=== PATIENT | female | born 1965 | race Caucasian/White ===

== ENCOUNTER 2023-07-21 19:27 | Inpatient (IN) ==
[2023-07-21] MEDS ORDERED: SODIUM CHLORIDE 0.9% 500 ML IV ONE (19:45)
[2023-07-21 21:46] LABS: Appearance Urine Cloudy (Clear); Bacteria Urine Automated 4+ (Negative); Blood Urine 2+ (Negative); Color Urine Dark Yellow; Epithelial Cell Urine Auto 20-30 /lpf (0-5); Glucose Urine UA Negative (Negative); Ketones Urine 1+ (Negative); Leukocyte Esterase Urine 1+ (Negative); Nitrite Urine Negative (Negative); Protein Urine 1+ (Negative); RBC Urine Automated 0-4 /hpf (0-4); Specific Gravity Urine 1.021 (1.000-1.030); Urobilinogen Urine Negative (Negative); WBC Urine Automated >30 /hpf (0-5); pH Urine 5.5 (4.5-7.5)
[2023-07-21 21:48] LABS: Bilirubin Urine 1+ (Negative)
[2023-07-21 22:00] LABS: Albumin Globulin Ratio 1.5 (0.9-2); Albumin Level 4.6 gm/dl (3.4-5.0); Bilirubin,Total 1.3 mg/dl (0.2-1.0); Calcium 10.1 mg/dl (8.6-10.3); Creatinine Clr Calc Pharmacy 31.5 ml/min; Est GFR (African American) 41.4 ml/min; Est GFR (Non-African American) 35.7 ml/min; Globulin 3.1 gm/dl (2.5-4.0); Potassium 4.6 mmol/L (3.5-5.1); Total Protein 7.7 gm/dl (6.0-8.3)
[2023-07-21 22:16] LABS: Basophils # (auto) 0.07 K/uL (0.00-0.20); Basophils % (auto) 0.4 %; Eosinophils # (auto) 0.13 K/uL (0.00-0.50); Eosinophils % (auto) 0.8 %; Hematocrit (blood only) 50.1 % (37.0-47.0); Hemoglobin 17.2 g/dl (12.0-16.0); Immature Granulocytes # (auto) 0.09 K/uL (0.01-0.20); Immature Granulocytes % (auto) 0.6 %; Lymphocytes # (auto) 1.88 K/uL (1.20-3.40); Lymphocytes % (auto) 11.8 %; Mean Corpuscular Hgb Conc 34.3 g/dL (32.0-36.0); Mean Corpuscular Volume 90.4 fL (80.0-100.0); Mean Platelet Volume 9.4 fL (9.4-12.4); Monocytes % (auto) 8.2 %; Neutrophils # (auto) 12.42 K/uL (1.40-6.50); Neutrophils % (auto) 78.2 %; Platelet Count 408 K/uL (130-400); RDW Coefficient of Variation 13.5 % (11.5-14.5); RDW Standard Deviation 45.3 fL (36.4-46.3); Red Blood Count 5.54 M/uL (4.20-5.40); White Blood Count 15.89 K/ul (4.8-10.8)
[2023-07-21 22:33] LABS: Adenovirus PCR Not Detected (NotDetected); Bordetella parapertussis PCR Not Detected (NotDetected); Bordetella pertussis PCR Not Detected (NotDetected); Chlamydia pneumoniae PCR Not Detected (NotDetected); Coronavirus 229E PCR Not Detected (NotDetected); Coronavirus CoV-2 (COVID19)PCR Not Detected (NotDetected); Coronavirus HKU1 PCR Not Detected (NotDetected); Coronavirus NL63 PCR Not Detected (NotDetected); Coronavirus OC43PCR Not Detected (NotDetected); Human Metapneumovirus PCR Not Detected (NotDetected); Influenza A PCR Not Detected (NotDetected); Influenza B PCR Not Detected (NotDetected); Mycoplasma pneumoniae PCR Not Detected (NotDetected); Parainfluenza Virus 1 PCR Not Detected (NotDetected); Parainfluenza Virus 2 PCR Not Detected (NotDetected); Parainfluenza Virus 3 PCR Not Detected (NotDetected); Parainfluenza Virus 4 PCR Not Detected (NotDetected); Respiratory Syncytial VirusPCR Not Detected (NotDetected); Rhinovirus/Enterovirus PCR Not Detected (NotDetected)
[2023-07-21] MEDS ORDERED: SODIUM CHLORIDE 0.9% 1,000 ML IV SCH (23:45)
[2023-07-21] MEDS ORDERED: ACETAMINOPHEN 1,000 MG/100 ML VIAL IV STA (23:49)
--- NOTE | 2023-07-21 23:52 | Emergency Department Note ---
History of Present Illness General Chief complaint: Abdominal Pain Stated complaint: VOMIT, ABD PAIN Time Seen by Provider: 07/21/23 23:40 History of Present Illness Maximum Pain Intensity: 10 This is a 58-year-old female presenting to the emergency department for evaluation of nausea, vomiting, and abdominal pain for the past 2 days. She has not had any diarrhea. No fevers or chills. No recent travel. No known exposure to disease. She rates her discomfort a 10/10. She does not report any previous abdominal surgeries. Pain is primarily in the very low abdomen. No flank pain. Home Medications Medication Instructions Recorded Confirmed Type ibuprofen 200 mg tablet 600 mg PO Q6H PRN Fever Or Pain 02/12/20 07/22/23 History albuterol sulfate 90 mcg/actuation 2 inh inhalation Q4H PRN shortness 08/25/22 07/22/23 Rx aerosol inhaler of breath or wheezing #6.7 grams fluticasone fur. 100 mcg-umeclid 1 ea inhalation QAM 07/22/23 07/22/23 History 62.5 mcg-vilant 25 mcg inhalat.powder (Trelegy Ellipta) Allergies Allergy/AdvReac Type Severity Reaction Status Date / Time No Known Drug Allergies Allergy Unknown . Verified 07/22/23 01:56 Past Med/Surg History Medical History Tobacco use Surgical History No significant past surgical history Social History Smoking Status: Current every day smoker Tobacco Type: Cigarettes Second Hand Exposure: No; Do You Dip or Chew Tobacco: No; Hx Alcohol Use: No Hx Substance Use: No Preferred Language: Swazi Medical Detail Representative Required: No Beliefs That Will Affect Care: None Current Living Situation: Family current occupational status: employed current occupation: housekeeping at [employer] Other Information That Helps Us Care for You: No Feels Safe at Home: Yes Assistive Devices: Denture - Upper, Denture - Lower and Glasses Review of Systems A total of 10 systems reviewed and were otherwise negative Physical Exam Vital Signs Vital Signs - 24 hr 07/21/23 23:00 07/22/23 02:30 Pulse Rate [Finger] 78 81 Respiratory Rate 20 20 Blood Pressure [Right Arm] 122/59 L 105/65 Blood Pressure Mean [Right Arm] 80 78 Pulse Oximetry 98 97 Oxygen Delivery Method Room Air Room Air VITALS: Vitals are noted on the nurse's note and reviewed by myself. Vital signs stable. GENERAL: Well-developed, well-nourished, white female, who is in no acute distress and resting comfortably. Patient is cooperative with the examination. HEAD: Normocephalic atraumatic. MOUTH: Mucous membranes moist. Tonsils are not enlarged. Pharynx without erythema, blood, or exudate. Uvula midline. Airway patent. NECK: Supple without nuchal rigidity. No lymphadenopathy. No thyromegaly. Cervical spine is nontender. HEART: Regular rate and rhythm without murmurs gallops or rubs. LUNGS: Clear to auscultation bilaterally without wheezes, rales or rhonchi. No retractions or accessory muscle use. ABDOMEN: Positive normal bowel sounds x 4. Soft, nontender, without masses or organomegaly. No guarding or rebound tenderness. MUSCULOSKELETAL: No muscle atrophy, erythema, or edema noted. Full range of motion in all extremities. Course Administered Medications Fluticasone Furoate (Fluticasone Furoate 100mcg 14 Puffs/Inhaler) 1 puffs INH DAILY [facility] Stop: 08/21/23 08:59 Last Admin: 07/22/23 09:48 Dose: 1 puffs Documented By: ADDISON Piperacillin Sod/Tazobactam (Sod 4.5 gm/ Dextrose) 100 mls @ 25 mls/hr IV Q8H [facility]; Protocol Stop: 08/01/23 11:59 Last Admin: 07/22/23 21:08 Dose: 25 mls/hr Documented By: Infusion: 07/22/23 15:44 Dose: 0 mls/hr Documented By: Admin: 07/22/23 11:22 Dose: 25 mls/hr Documented By: ULYSSES Dextrose/Sodium Chloride (D5w And 1/2nss) 1,000 mls @ 80 mls/hr IV .[id number] [facility] Stop: 07/23/23 14:14 Last Admin: 07/22/23 21:08 Dose: 80 mls/hr Documented By: Infusion: 07/22/23 21:08 Dose: 80 mls/hr Documented By: Admin: 07/22/23 13:36 Dose: 80 mls/hr Documented By: ULYSSES Umeclidinium/Vilanterol (Umeclidinium/Vilanterol 62.5/25mcg 7 Puffs/Inhaler) 1 puffs INH DAILY [facility] Stop: 08/21/23 08:59 Last Admin: 07/22/23 09:48 Dose: 1 puffs Documented By: ADDISON Discontinued Medications Sodium Chloride (Nss) 500 mls @ 999 mls/hr IV .Q31M ONE Stop: 07/21/23 20:15 Last Infusion: 07/21/23 22:59 Dose: 0 mls/hr Documented By: Admin: 07/21/23 21:26 Dose: 999 mls/hr Documented By: LINSEY Sodium Chloride (Nss) 1,000 mls @ 999 mls/hr IV .Q1H1M [facility] Stop: 07/22/23 00:45 Last Infusion: 07/22/23 01:05 Dose: 0 mls/hr Documented By: Admin: 07/21/23 23:53 Dose: 999 mls/hr Documented By: ALEIDA Acetaminophen (Ofirmev) 1,000 mg in 100 mls @ 400 mls/hr IV NOW STA Stop: 07/22/23 00:03 Last Infusion: 07/22/23 00:11 Dose: 0 mls/hr Documented By: Admin: 07/21/23 23:54 Dose: 400 mls/hr Documented By: ALEIDA Piperacillin Sod/Tazobactam Sod (Zosyn) 4.5 gm in 100 mls @ 200 mls/hr IV ONE STA; Protocol Stop: 07/22/23 05:52 Last Infusion: 07/22/23 06:13 Dose: 0 mls/hr Documented By: Admin: 07/22/23 05:39 Dose: 200 mls/hr Documented By: ALEIDA Dextrose/Sodium Chloride (D5w And Nss) 1,000 mls @ 50 mls/hr IV .Q20H [facility] Stop: 08/21/23 06:51 Last Infusion: 07/22/23 13:15 Dose: 0 mls/hr Documented By: Admin: 07/22/23 09:01 Dose: 125 mls/hr Documented By: DONNA Magnesium Sulfate/Dextrose (Magnesium Sulfate / D5w) 1 gm in 100 mls @ 50 mls/hr IV Q2H [facility] Stop: 07/22/23 17:14 Last Infusion: 07/22/23 20:41 Dose: 0 mls/hr Documented By: Admin: 07/22/23 16:45 Dose: 50 mls/hr Documented By: Infusion: 07/22/23 16:45 Dose: 50 mls/hr Documented By: Admin: 07/22/23 16:40 Dose: 50 mls/hr Documented By: MARGA Ioversol (Optiray 320 100ml) 100 ml IV ONCE ONE Stop: 07/22/23 00:20 Last Admin: 07/22/23 00:19 Dose: 93 ml Documented By: SKYLAR Propofol (Propofol Iv Emulsion 10 Mg/Ml 20 Ml Vial) 200 mg IV NOW STA Stop: 07/22/23 05:37 Last Admin: 07/22/23 06:10 Dose: 75 mg Documented By: NIKO Co-signed By: ALEIDA Medical Decision Making Differential Diagnosis Differential diagnosis: Etiologies such as biliary colic, cholecystitis, hepatitis, pancreatitis, cardiac disease, pancreatitis, gastritis, peptic ulcer disease, appendicitis, cystitis, diverticulitis, mesenteric ischemia, inflammatory bowel disease, ileus, bowel obstruction, testicular/adnexal torsion, aortic pathology, shingles, as well as others were considered Laboratory Data 07/21/23 21:17 07/21/23 21:17 Lab Results 07/21/23 07/21/23 07/21/23 Range/Units 21:07 21:07 21:07 WBC (4.8-10.8) K/ul RBC (4.20-5.40) M/uL Hgb (12.0-16.0) g/dl Hct (37.0-47.0) % MCV (80.0-100.0) fL MCH (25.0-34.0) pg MCHC (32.0-36.0) g/dL RDW Std Deviation (36.4-46.3) fL RDW Coeff of Oren (11.5-14.5) % Plt Count (130-400) K/uL MPV (9.4-12.4) fL Immature Gran % (Auto) % Neut % (Auto) % Lymph % (Auto) % [place] % (Auto) % Eos % (Auto) % Baso % (Auto) % Neut # (Auto) (1.40-6.50) K/uL Lymph # (Auto) (1.20-3.40) K/uL [place]os # (Auto) (0.11-0.59) K/uL Eos # (Auto) (0.00-0.50) K/uL Baso # (Auto) (0.00-0.20) K/uL Immature Gran # (Auto) (0.01-0.20) K/uL Sodium (136-145) mmol/L Potassium (3.5-5.1) mmol/L Chloride (98-107) mmol/L Carbon Dioxide (21-32) mmol/L Anion Gap (3-11) BUN (6-23) mg/dl Creatinine (0.6-1.2) mg/dl Est Cr Clr Drug Dosing ml/min Est GFR ( Amer) ml/min Est GFR (Non-Af Amer) ml/min BUN/Creatinine Ratio (10-20) Glucose (70-99(Fasting)) mg/dl Calcium (8.6-10.3) mg/dl Total Bilirubin (0.2-1.0) mg/dl AST (13-39) U/L ALT (7-52) U/L Alkaline Phosphatase (34-104) U/L Total Protein (6.0-8.3) gm/dl Albumin (3.4-5.0) gm/dl Globulin (2.5-4.0) gm/dl Albumin/Globulin Ratio (0.9-2) Urine Color Dark Yellow Urine Appearance Cloudy A (Clear) Urine pH 5.5 (4.5-7.5) Ur Specific [place] 1.021 (1.000-1.030) Urine Protein 1+ H (Negative) Urine Glucose (UA) Negative (Negative) Urine Ketones 1+ H (Negative) Urine Blood 2+ H (Negative) Urine Nitrite Negative (Negative) Urine Bilirubin 1+ H (Negative) Urine Urobilinogen Negative (Negative) Ur Leukocyte Esterase 1+ H (Negative) Urine WBC (Auto) >30 H (0-5) /hpf Urine RBC (Auto) 0-4 (0-4) /hpf U Hyaline Cast (Auto) 10-30 H (0-5) /lpf U Epithel Cells (Auto) 20-30 H (0-5) /lpf Urine Bacteria (Auto) 4+ H (Negative) Urine Opiates Screen Neg (Neg) Ur Methadone, Qual Neg (Neg) Urine Barbiturates Neg (Neg) Ur Phencyclidine (PCP) Neg (Neg) U Amphetamin/Meth Scrn Neg (Neg) MDMA (Ecstasy) Screen Neg (Neg) U Benzodiazepines Scrn Neg (Neg) Ur Cocaine Metabolite Neg (Neg) U Marijuana (THC) Screen Neg (Neg) Adenovirus (PCR) (NotDetected) B. pertussis DNA (PCR) (NotDetected) B.parapertussis DNA PCR (NotDetected) C. pneumoniae DNA (PCR) (NotDetected) Coronavirus OC43 (PCR) (NotDetected) Coronavirus HKU1 (PCR) (NotDetected) Coronavirus 229E (PCR) (NotDetected) SARS-CoV-2 (PCR) Cancelled Coronavirus NL63 (PCR) (NotDetected) Human Metapneumovir PCR (NotDetected) Influenza Type A (PCR) Cancelled Influenza Type B (PCR) Cancelled M. pneumoniae (PCR) (NotDetected) Parainfluenza 1 (PCR) (NotDetected) Parainfluenza 2 (PCR) (NotDetected) Parainfluenza 3 (PCR) (NotDetected) Parainfluenza 4 (PCR) (NotDetected) RSV (RT-PCR) Cancelled RSV (PCR) (NotDetected) Entero/Rhino (PCR) (NotDetected) 07/21/23 07/21/23 07/21/23 Range/Units 21:17 21:: WBC 15.89 H (4.8-10.8) K/ul RBC 5.54 H (4.20-5.40) M/uL Hgb 17.2 H (12.0-16.0) g/dl Hct 50.1 H (37.0-47.0) % MCV 90.4 (80.0-100.0) fL MCH 31.0 (25.0-34.0) pg MCHC 34.3 (32.0-36.0) g/dL RDW Std Deviation 45.3 (36.4-46.3) fL RDW Coeff of Oren 13.5 (11.5-14.5) % Plt Count 408 H (130-400) K/uL MPV 9.4 (9.4-12.4) fL Immature Gran % (Auto) 0.6 % Neut % (Auto) 78.2 % Lymph % (Auto) 11.8 % Coos % (Auto) 8.2 % Eos % (Auto) 0.8 % Baso % (Auto) 0.4 % Neut # (Auto) 12.42 H (1.40-6.50) K/uL Lymph # (Auto) 1.88 (1.20-3.40) K/uL [place] # (Auto) 1.30 H (0.11-0.59) K/uL Eos # (Auto) 0.13 (0.00-0.50) K/uL Baso # (Auto) 0.07 (0.00-0.20) K/uL Immature Gran # (Auto) 0.09 (0.01-0.20) K/uL Sodium 135 L (136-145) mmol/L Potassium 4.6 (3.5-5.1) mmol/L Chloride 101 (98-107) mmol/L Carbon Dioxide 25 (21-32) mmol/L Anion Gap 9 (3-11) BUN 33 H (6-23) mg/dl Creatinine 1.57 H (0.6-1.2) mg/dl Est Cr Clr Drug Dosing 31.5 ml/min Est GFR ( Amer) 41.4 ml/min Est GFR (Non-Af Amer) 35.7 ml/min BUN/Creatinine Ratio 21.0 H (10-20) Glucose 106 H (70-99(Fasting)) mg/dl Calcium 10.1 (8.6-10.3) mg/dl Total Bilirubin 1.3 H (0.2-1.0) mg/dl AST 18 (13-39) U/L ALT 12 (7-52) U/L Alkaline Phosphatase 70 (34-104) U/L Total Protein 7.7 (6.0-8.3) gm/dl Albumin 4.6 (3.4-5.0) gm/dl Globulin 3.1 (2.5-4.0) gm/dl Albumin/Globulin Ratio 1.5 (0.9-2) Urine Color Urine Appearance (Clear) Urine pH (4.5-7.5) Ur Specific [place] (1.000-1.030) Urine Protein (Negative) Urine Glucose (UA) (Negative) Urine Ketones (Negative) Urine Blood (Negative) Urine Nitrite (Negative) Urine Bilirubin (Negative) Urine Urobilinogen (Negative) Ur Leukocyte Esterase (Negative) Urine WBC (Auto) (0-5) /hpf Urine RBC (Auto) (0-4) /hpf U Hyaline Cast (Auto) (0-5) /lpf U Epithel Cells (Auto) (0-5) /lpf Urine Bacteria (Auto) (Negative) Urine Opiates Screen (Neg) Ur Methadone, Qual (Neg) Urine Barbiturates (Neg) Ur Phencyclidine (PCP) (Neg) U Amphetamin/Meth Scrn (Neg) MDMA (Ecstasy) Screen (Neg) U Benzodiazepines Scrn (Neg) Ur Cocaine Metabolite (Neg) U Marijuana (THC) Screen (Neg) Adenovirus (PCR) Not Detected (NotDetected) B. pertussis DNA (PCR) Not Detected (NotDetected) B.parapertussis DNA PCR Not Detected (NotDetected) C. pneumoniae DNA (PCR) Not Detected (NotDetected) Coronavirus OC43 (PCR) Not Detected (NotDetected) Coronavirus HKU1 (PCR) Not Detected (NotDetected) Coronavirus 229E (PCR) Not Detected (NotDetected) SARS-CoV-2 (PCR) Not Detected Coronavirus NL63 (PCR) Not Detected (NotDetected) Human Metapneumovir PCR Not Detected (NotDetected) Influenza Type A (PCR) Not Detected Influenza Type B (PCR) Not Detected M. pneumoniae (PCR) Not Detected (NotDetected) Parainfluenza 1 (PCR) Not Detected (NotDetected) Parainfluenza 2 (PCR) Not Detected (NotDetected) Parainfluenza 3 (PCR) Not Detected (NotDetected) Parainfluenza 4 (PCR) Not Detected (NotDetected) RSV (RT-PCR) RSV (PCR) Not Detected (NotDetected) Entero/Rhino (PCR) Not Detected (NotDetected) Imaging Data Radiologist's Impression: Abdomen/Pelvis CT 07/21/23 23:49 Exam(s): CT ABDOMEN + PELVIS With Contrast IV Amt: 90 ml optiray 320 EXAM: CT Abdomen and Pelvis With Intravenous Contrast CLINICAL HISTORY: Reason for exam: low abd pain, n/v. TECHNIQUE: Axial computed tomography images of the abdomen and pelvis with intravenous contrast. CTDI is 8.53 mGy and DLP is 381.96 mGy-cm. Automated exposure control was utilized for the study. A dose lowering technique was utilized adhering to the principles of ALARA. CONTRAST: Patient received 90 ml optiray 320 of IV contrast COMPARISON: CT abdomen/pelvis on 02/12/2020 FINDINGS: Lung bases: Mild bibasilar atelectasis. Mediastinum: Small hiatal hernia. ABDOMEN: Liver: Hepatomegaly. Gallbladder and bile ducts: Unremarkable. No calcified stones. No ductal dilation. Pancreas: Unremarkable. No mass. No ductal dilation. Spleen: Unremarkable. No splenomegaly. Adrenals: Unremarkable. No mass. Kidneys and ureters: Unremarkable. No hydronephrosis or obstructing stone. Stomach and bowel: Dilated fluid and gas-filled small bowel loops, compatible with small bowel obstruction secondary to the herniated small bowel within the right inguinal hernia. Small right inguinal hernia containing obstructed small bowel. Evaluation of the stomach is limited by underdistention. Diverticulosis without definite evidence of diverticulitis. Under distention of the descending colon and sigmoid colon limits evaluation. PELVIS: Appendix: Normal appendix. Bladder: Underdistended bladder limits evaluation. Reproductive: Retroverted uterus. ABDOMEN and PELVIS: Intraperitoneal space: Small amount of ascites. No free air. Bones/joints: No acute fracture. No dislocation. Soft tissues: See above. Vasculature: Atherosclerotic changes of the vasculature. No aortic aneurysm or dissection. Phleboliths in the pelvis. Lymph nodes: Unremarkable. No enlarged lymph nodes. IMPRESSION: 1. Dilated fluid and gas-filled small bowel loops, compatible with small bowel obstruction secondary to the herniated small bowel within the right inguinal hernia. 2. Small amount of ascites. Electronically signed by: Karson Rosas M.D. 07/22/23 03:57 AM MDM Narrative Physical exam and history were performed. Nursing notes, EMR, and Medication List were personally reviewed. No social concerns were identified as barriers to patients care. Patient appears to have abdominal pain bringing her to the ER. She is having vomiting with this. Patient was seen during a period of very high ER volume and acuity with extended wait times. Nursing protocol order have been performed and some of these are available for my review at the time of patient encounter. Patient's blood work is as above and was reviewed. She does have an elevated wh ite count of 15,000. She does not have significant anemia or gross electrolyte imbalance. Transaminases are not diagnostic. CT scan of the abdomen and pelvis was reviewed by myself and radiology. CT scan was concerning as it shows a small bowel obstruction likely to a right inguinal hernia. I did attempt to reduce this at bedside, but was not able to do so. I did reach out to the hospitalist team as well as the on-call surgeon. General surgery did evaluate the patient at bedside here in the ER, and with the assistance of my attending, Dr. Brown, they were able to consciously sedate the patient and reduce the hernia at bedside. Overall the patient does not appear well for discharge home and will need continued monitoring. Please see the hospitalist and surgical team dictations for further patient course, plan, and disposition. The chart was completed utilizing [employer] Speech Voice Recognition Software. Grammatical errors, random word insertions, pronoun errors, and incomplete sentences are an occasional consequence of this system due to software limitations, ambient noise, and hardware issues. Any formal questions or concerns about the content, text, or information contained within the body of this dictation should be directly addressed to the provider for clarification. . Impression & Plan Incarcerated right inguinal hernia, SBO (small bowel obstruction) Discharge Plan Visit Data Chief Complaint: Abdominal Pain Stated Complaint: VOMIT, ABD PAIN ED Provider: Laurel Brown ED Midlevel Provider: Ilya Nelson Discharge Problem: Incarcerated right inguinal hernia, SBO (small bowel obstruction) Patient Disposition: Admitted As Inpatient Discharge Instructions Interventions: ED Discharge Assessment Last Done: 07/22/23 06:53
[2023-07-22] MEDS ORDERED: OPTIRAY 320 100ml IV ONE (00:19)
[2023-07-22 00:25] LABS: Amphetamines+Metham, Urine Neg (Neg); Barbiturates, Urine Neg (Neg); Benzodiazepine, Urine Neg (Neg); Cocaine, Urine Neg (Neg); MDMA (Ecstacy), Urine Neg (Neg); Methadone, Urine Neg (Neg); Opiate, Urine Neg (Neg); Phencyclidine, Urine Neg (Neg)
--- NOTE | 2023-07-22 03:57 | CT Scan Report ---
Exam(s): CT ABDOMEN + PELVIS With Contrast IV Amt: 90 ml optiray 320 EXAM: CT Abdomen and Pelvis With Intravenous Contrast CLINICAL HISTORY: Reason for exam: low abd pain, n/v. TECHNIQUE: Axial computed tomography images of the abdomen and pelvis with intravenous contrast. CTDI is 8.53 mGy and DLP is 381.96 mGy-cm. Automated exposure control was utilized for the study. A dose lowering technique was utilized adhering to the principles of ALARA. CONTRAST: Patient received 90 ml optiray 320 of IV contrast COMPARISON: CT abdomen/pelvis on 02/12/2020 FINDINGS: Lung bases: Mild bibasilar atelectasis. Mediastinum: Small hiatal hernia. ABDOMEN: Liver: Hepatomegaly. Gallbladder and bile ducts: Unremarkable. No calcified stones. No ductal dilation. Pancreas: Unremarkable. No mass. No ductal dilation. Spleen: Unremarkable. No splenomegaly. Adrenals: Unremarkable. No mass. Kidneys and ureters: Unremarkable. No hydronephrosis or obstructing stone. Stomach and bowel: Dilated fluid and gas-filled small bowel loops, compatible with small bowel obstruction secondary to the herniated small bowel within the right inguinal hernia. Small right inguinal hernia containing obstructed small bowel. Evaluation of the stomach is limited by underdistention. Diverticulosis without definite evidence of diverticulitis. Under distention of the descending colon and sigmoid colon limits evaluation. PELVIS: Appendix: Normal appendix. Bladder: Underdistended bladder limits evaluation. Reproductive: Retroverted uterus. ABDOMEN and PELVIS: Intraperitoneal space: Small amount of ascites. No free air. Bones/joints: No acute fracture. No dislocation. Soft tissues: See above. Vasculature: Atherosclerotic changes of the vasculature. No aortic aneurysm or dissection. Phleboliths in the pelvis. Lymph nodes: Unremarkable. No enlarged lymph nodes. IMPRESSION: 1. Dilated fluid and gas-filled small bowel loops, compatible with small bowel obstruction secondary to the herniated small bowel within the right inguinal hernia. 2. Small amount of ascites. Electronically signed by: Karson Rosas M.D. 07/22/23 03:57 AM
[2023-07-22] MEDS ORDERED: MoRPHine SULFATE 4 MG/ML 1 ML CARP\\VIAL IV PRN (04:47)
[2023-07-22] MEDS ORDERED: PIPERACILLIN/TAZOBACTAM 4.5 GM/100 ML BAG IV STA (05:23)
--- NOTE | 2023-07-22 05:32 | History & Physical Report ---
Date of Service July 22, 2023 Assessment & Plan (1) SBO (small bowel obstruction): Plan: 58-year-old female with past medical significant for giant bullous emphysema, COPD, history of pneumonia, cholesteatoma of right ear s/p mastoidectomy, ongoing tobacco abuse, mixed conductive and sensorineural hearing loss of both ears presents with abdominal pain for last 2 days and found to have SBO. Small bowel obstruction CT scan showing:Dilated fluid and gas-filled small bowel loops, compatible with small bowel obstruction secondary to the herniated small bowel within the right inguinal hernia. ER tried to reduce the hernia but was difficult Notified surgery. Surgery is going to try to reduce hernia under conscious sedation ,and was successful N.p.o. IV fluids IV pain meds as needed To monitor for 24hrs to make sure that bowel reduced is viable as per surgery Son wants to be notified if any surgery needed. Close monitor UTI Started on Zosyn We will follow cultures CAIO. Creatinine 1.5 Getting fluids Avoid nephrotoxic agents Follow repeat labs Leukocytosis Seems chronic Possibly from smoking Elevated hemoglobin Possibly dehydration Follow repeat labs COPD Continue home inhalers Currently seems stable Tobacco abuse Needs counseling DVT prophylax SCDs for now Disposition medical floor Full code History of Present Illness Chief Complaint: Abdominal pain Primary Care Provider: Jordan Garcia DO 58-year-old female with past medical significant for giant bullous emphysema, COPD, history of pneumonia, cholesteatoma of right ear s/p mastoidectomy, ongoing tobacco abuse, mixed conductive and sensorineural hearing loss of both ears presents with abdominal pain for last 2 days. Having abdominal last 2 days with associated nausea and vomiting. Last bowel movement was couple of days ago. Micturating okay. Denies any fevers. Has cough but she says she smokes. Denies chest pain or shortness of breath. No headaches. No runny nose or sore throat. Currently hemodynamically stable. Somewhat hard of hearing. Past medical history. As mentioned above. Past surgical history. Tympanoplasty mastoidectomy without ossicular reconstruction. Social history. . Smokes half pack a day for last 40 years. No alcohol use. No drug use. Family history. Mother had breast cancer. Allergies Allergy/AdvReac Type Severity Reaction Status Date / Time No Known Drug Allergies Allergy Unknown . Verified 07/22/23 01:56 Home Medications Medication Instructions Recorded Confirmed Type ibuprofen 200 mg tablet 600 mg PO Q6H PRN Fever Or Pain 02/12/20 07/22/23 History albuterol sulfate 90 mcg/actuation 2 inh inhalation Q4H PRN shortness 08/25/22 07/22/23 Rx aerosol inhaler of breath or wheezing #6.7 grams fluticasone fur. 100 mcg-umeclid 1 ea inhalation QAM 07/22/23 07/22/23 History 62.5 mcg-vilant 25 mcg inhalat.powder (Trelegy Ellipta) Past Med/Surg History Medical History Tobacco use Surgical History No significant past surgical history Social History Smoking Status: Current every day smoker Preferred Language: Serbian current occupational status: employed current occupation: housekeeping at [employer] Feels Safe at Home: Yes Review of Systems Review of Systems: All systems reviewed & are unremarkable except as noted in HPI & below Physical Exam Physical Exam: General-Not in distress Head- atraumatic Eyes- PERRL. ENT- oropharynx clear Neck- supple, no JVD. Lungs- clear to auscultation , no wheezing or crackles. Heart- regular rhythm; no murmur, no gallop. Abdomen- sluggish bowel sounds, soft, diffuse tender , mild distension Extremities- no pretibial edema, no erythema seen Neuro- alert, oriented x 3; PERRL no facial palsy; no dysarthria; obeys simple commands Skin- warm & dry Results & Data Results & Data Vital Signs (Past 12 Hours) Vital Signs Temp Pulse Pulse Resp BP BP Pulse Ox 07/22/23 02:30 81 20 105/65 97 07/21/23 23:00 78 20 122/59 L 98 07/21/23 19:41 37 C 129 H 20 102/72 96 O2 Del Method 07/22/23 02:30 Room Air 07/21/23 23:00 Room Air 07/21/23 19:41 Room Air Diagnostic Findings Laboratory Results - last 24 hr Laboratory Results WBC 15.89 K/ul (4.8-10.8) H 07/21/23 21:17 RBC 5.54 M/uL (4.20-5.40) H 07/21/23 21:17 Hgb 17.2 g/dl (12.0-16.0) H 07/21/23 21:17 Hct 50.1 % (37.0-47.0) H 07/21/23 21:17 MCV 90.4 fL (80.0-100.0) 07/21/23 21:17 MCH 31.0 pg (25.0-34.0) 07/21/23 21:17 MCHC 34.3 g/dL (32.0-36.0) 07/21/23 21:17 RDW Std Deviation 45.3 fL (36.4-46.3) 07/21/23 21:17 RDW Coeff of Oren 13.5 % (11.5-14.5) 07/21/23 21:17 Plt Count 408 K/uL (130-400) H 07/21/23 21:17 MPV 9.4 fL (9.4-12.4) 07/21/23 21:17 Immature Gran % (Auto) 0.6 % 07/21/23 21:17 Neut % (Auto) 78.2 % 07/21/23 21:17 Lymph % (Auto) 11.8 % 07/21/23 21:17 [place] % (Auto) 8.2 % 07/21/23 21:17 Eos % (Auto) 0.8 % 07/21/23 21:17 Baso % (Auto) 0.4 % 07/21/23:17 Neut # (Auto) 12.42 K/uL (1.40-6.50) H 07/21/23 21:17 Lymph # (Auto) 1.88 K/uL (1.20-3.40) 07/21/23 21:17 [place] # (Auto) 1.30 K/uL (0.11-0.59) H 07/21/23 21:17 Eos # (Auto) 0.13 K/uL (0.00-0.50) 07/21/23 21:17 Baso # (Auto) 0.07 K/uL (0.00-0.20) 07/21/23 21:17 Immature Gran # (Auto) 0.09 K/uL (0.01-0.20) 07/21/23 21:17 Sodium 135 mmol/L (136-145) L 07/21/23 21:17 Potassium 4.6 mmol/L (3.5-5.1) 07/21/23 21:17 Chloride 101 mmol/L (98-107) 07/21/23 21:17 Carbon Dioxide 25 mmol/L (21-32) 07/21/23 21:17 Anion Gap 9 (3-11) 07/21/23 21:17 BUN 33 mg/dl (6-23) H 07/21/23 21:17 Creatinine 1.57 mg/dl (0.6-1.2) H 07/21/23 21:17 Est Cr Clr Drug Dosing 31.5 ml/min 07/21/23 21:17 Est GFR ( Amer) 41.4 ml/min 07/21/23 21: Est GFR (Non-Af Amer) 35.7 ml/min 07/21/23 21: BUN/Creatinine Ratio 21.0 (10-20) H 07/21/23 21:17 Glucose 106 mg/dl (70-99(Fasting)) H 07/21/23 21:17 Calcium 10.1 mg/dl (8.6-10.3) 07/21/23 21: Total Bilirubin 1.3 mg/dl (0.2-1.0) H 07/21/23 21:17 AST 18 U/L (13-39) 07/21/23 21:17 ALT 12 U/L (7-52) 07/21/23 21:17 Alkaline Phosphatase 70 U/L (34-104) 07/21/23 21:17 Total Protein 7.7 gm/dl (6.0-8.3) 07/21/23 21: Albumin 4.6 gm/dl (3.4-5.0) 07/21/23 21: Globulin 3.1 gm/dl (2.5-4.0) 07/21/23 21: Albumin/Globulin Ratio 1.5 (0.9-2) 07/21/23 21:17 Urine Color Dark Yellow 07/21/23 21:07 Urine Appearance Cloudy (Clear) A 07/21/23 21:07 Urine pH 5.5 (4.5-7.5) 07/21/23 21: Ur Specific [place] 1.021 (1.000-1.030) 07/21/23 21:07 Urine Protein 1+ (Negative) H 07/21/23 21:07 Urine Glucose (UA) Negative (Negative) 07/21/23 21:07 Urine Ketones 1+ (Negative) H 07/21/23 21:07 Urine Blood 2+ (Negative) H 07/21/23 21:07 Urine Nitrite Negative (Negative) 07/21/23 21:07 Urine Bilirubin 1+ (Negative) H 07/21/23 21:07 Urine Urobilinogen Negative (Negative) 07/21/23 21:07 Ur Leukocyte Esterase 1+ (Negative) H 07/21/23 21:07 Urine WBC (Auto) >30 /hpf (0-5) H 07/21/23 21:07 Urine RBC (Auto) 0-4 /hpf (0-4) 07/21/23 21:07 U Hyaline Cast (Auto) 10-30 /lpf (0-5) H 07/21/23 21:07 U Epithel Cells (Auto) 20-30 /lpf (0-5) H 07/21/23 21:07 Urine Bacteria (Auto) 4+ (Negative) H 07/21/23 21:07 Urine Opiates Screen Neg (Neg) 07/21/23 21:07 Ur Methadone, Qual Neg (Neg) 07/21/23 21:07 Urine Barbiturates Neg (Neg) 07/21/23 21:07 Ur Phencyclidine (PCP) Neg (Neg) 07/21/23 21:07 U Amphetamin/Meth Scrn Neg (Neg) 07/21/23 21:07 MDMA (Ecstasy) Screen Neg (Neg) 07/21/23 21:07 U Benzodiazepines Scrn Neg (Neg) 07/21/23 21:07 Ur Cocaine Metabolite Neg (Neg) 07/21/23 21:07 U Marijuana (THC) Screen Neg (Neg) 07/21/23 21:07 Adenovirus (PCR) Not Detected (NotDetected) 07/21/23 21:23 B. pertussis DNA (PCR) Not Detected (NotDetected) 07/21/23 21:23 B.parapertussis DNA PCR Not Detected (NotDetected) 07/21/23 21:23 C. pneumoniae DNA (PCR) Not Detected (NotDetected) 07/21/23 21:23 Coronavirus OC43 (PCR) Not Detected (NotDetected) 07/21/23 21:23 Coronavirus HKU1 (PCR) Not Detected (NotDetected) 07/21/23 21:23 Coronavirus 229E (PCR) Not Detected (NotDetected) 07/21/23 21:23 SARS-CoV-2 (PCR) Not Detected (NotDetected) 07/21/23 21:23 Coronavirus NL63 (PCR) Not Detected (NotDetected) 07/21/23 21:23 Human Metapneumovir PCR Not Detected (NotDetected) 07/21/23 21:23 Influenza Type A (PCR) Not Detected (NotDetected) 07/21/23 21:23 Influenza Type B (PCR) Not Detected (NotDetected) 07/21/23 21:23 M. pneumoniae (PCR) Not Detected (NotDetected) 07/21/23 21:23 Parainfluenza 1 (PCR) Not Detected (NotDetected) 07/21/23 21:23 Parainfluenza 2 (PCR) Not Detected (NotDetected) 07/21/23 21:23 Parainfluenza 3 (PCR) Not Detected (NotDetected) 07/21/23 21:23 Parainfluenza 4 (PCR) Not Detected (NotDetected) 07/21/23 21:23 RSV (RT-PCR) Cancelled 07/21/23 21:07 RSV (PCR) Not Detected (NotDetected) 07/21/23 21:23 Entero/Rhino (PCR) Not Detected (NotDetected) 07/21/23 21:23 Impressions Abdomen/Pelvis CT 07/21/23 23:49 Exam(s): CT ABDOMEN + PELVIS With Contrast IV Amt: 90 ml optiray 320 EXAM: CT Abdomen and Pelvis With Intravenous Contrast CLINICAL HISTORY: Reason for exam: low abd pain, n/v. TECHNIQUE: Axial computed tomography images of the abdomen and pelvis with intravenous contrast. CTDI is 8.53 mGy and DLP is 381.96 mGy-cm. Automated exposure control was utilized for the study. A dose lowering technique was utilized adhering to the principles of ALARA. CONTRAST: Patient received 90 ml optiray 320 of IV contrast COMPARISON: CT abdomen/pelvis on 02/12/2020 FINDINGS: Lung bases: Mild bibasilar atelectasis. Mediastinum: Small hiatal hernia. ABDOMEN: Liver: Hepatomegaly. Gallbladder and bile ducts: Unremarkable. No calcified stones. No ductal dilation. Pancreas: Unremarkable. No mass. No ductal dilation. Spleen: Unremarkable. No splenomegaly. Adrenals: Unremarkable. No mass. Kidneys and ureters: Unremarkable. No hydronephrosis or obstructing stone. Stomach and bowel: Dilated fluid and gas-filled small bowel loops, compatible with small bowel obstruction secondary to the herniated small bowel within the right inguinal hernia. Small right inguinal hernia containing obstructed small bowel. Evaluation of the stomach is limited by underdistention. Diverticulosis without definite evidence of diverticulitis. Under distention of the descending colon and sigmoid colon limits evaluation. PELVIS: Appendix: Normal appendix. Bladder: Underdistended bladder limits evaluation. Reproductive: Retroverted uterus. ABDOMEN and PELVIS: Intraperitoneal space: Small amount of ascites. No free air. Bones/joints: No acute fracture. No dislocation. Soft tissues: See above. Vasculature: Atherosclerotic changes of the vasculature. No aortic aneurysm or dissection. Phleboliths in the pelvis. Lymph nodes: Unremarkable. No enlarged lymph nodes. IMPRESSION: 1. Dilated fluid and gas-filled small bowel loops, compatible with small bowel obstruction secondary to the herniated small bowel within the right inguinal hernia. 2. Small amount of ascites. Electronically signed by: Karson Rosas M.D. 07/22/23 03:57 AM ECG Additional Comments: ECG sinus tach at a rate of 105. Bilateral enlargement. Pulmonary disease pattern. Code Status & VTE Plan VTE Prophylaxis Plan VTE Prophylaxis will be ordered: Yes
[2023-07-22] MEDS ORDERED: PROPOFOL IV EMULSION 10 MG/ML 20 ML VIAL IV STA (05:36)
[2023-07-22] MEDS ORDERED: SODIUM CHLORIDE 0.9% 500 ML IV SCH (05:45)
[2023-07-22] MEDS ORDERED: HYDROmorphone INJ 0.5 MG/0.5 ML SYR IV PRN (06:52)
[2023-07-22] MEDS ORDERED: ALBUTEROL HFA 8 GM INHALER INH PRN (06:52)
[2023-07-22] MEDS ORDERED: ONDANSETRON INJ 2 MG/ML 2 ML VIAL IV PRN (06:52)
[2023-07-22] MEDS ORDERED: D5W AND NSS 1,000 ML IV SCH (06:52)
--- NOTE | 2023-07-22 06:56 | Emergency Department Note ---
Pre Sedation Assessment Vital Signs Temp Pulse Pulse Resp BP BP Pulse Ox 07/22/23 02:30 81 20 105/65 97 07/21/23 23:00 78 20 122/59 L 98 07/21/23 19:41 37 C 129 H 20 102/72 96 O2 Del Method 07/22/23 02:30 Room Air 07/21/23 23:00 Room Air 07/21/23 19:41 Room Air Cardiovascular RRR, no murmur, no edema Respiratory normal respiratory effort, lungs clear to auscultation Pre-Sedation Airway Assessment Smoking Status: Current every day smoker Hx Sleep Apnea: No Short, Thick Neck: No Thyromental Distance: > or= 3.5 Finger Breadths Oral Cavity: + Dentures Mallampati Class: I ASA: ASA2 NPO Status Date of Last Intake of Fluids: 07/21/23 Time of Last Intake of Fluids: 18:30 Date of Last Intake of Solid Food: 07/19/23 Procedure Planning Contraindications for Sedation: none Current Medications Reviewed: Yes Notes The planned sedation has been discussed with the patient. Informed Consent was obtained. I have identified the patient, determined the appropriateness of sedation and have assessed the patient immediately prior to the procedure. All medicine(s) and interventions are by my order.
--- NOTE | 2023-07-22 06:57 | Emergency Department Note ---
ED Visit Note Procedural Sedation Indication right inguinal hernia Total time: [id number] Written consent was obtained after the risks and benefits were explained to the patient, including, but not limited to aspiration, allergic reaction, breathing difficulties, cardiac complications, vomiting, pain, event recall, bleeding, and/or infection. Pre-sedation examination and paperwork completed. The patient was on 100% oxygen via NRB prior to the procedure. Continuos end tidal CO2 monitoring, pulse oximetry, and cardiac monitoring were utilized. Suction, airway equipment, medications, respiratory equipment, and appropriate personnel were prepared prior to the initiation of the procedure. A time out was taken. Sedation was achieved utilizing a total of 75 mg of propofol. After I observed the patient had reached the appropriate level of sedation the main procedure was performed without complication. Sedation was discontinued and the monitoring continued. The patient recovered quickly from the effects of the medication without complication or adverse event. .
--- NOTE | 2023-07-22 06:58 | Surgery Consultation ---
Date of Consultation July 22, 2023 Assessment & Plan (1) SBO (small bowel obstruction): (2) Incarcerated right inguinal hernia: Plan 58-year-old woman with a incarcerated right inguinal hernia causing a small bowel obstruction. I discussion with her about this finding. In conjunction with the ER physician, I was able to reduce the right inguinal hernia under conscious sedation in the emergency department. After the reduction, she was feeling somewhat better. She will be admitted to the medicine service for observation. We will continue to follow. History of Present Illness Reason for Consultation: SBO with [facility] Requesting Physician: MD Keerthi Attending Physician: Jorge Luis Roberts MD History of Present Illness 58-year-old woman presents with a 3-day history of nausea, vomiting, abdominal pain. She has had fevers and chills as well. She has never had an abdominal operation. She does have COPD and is a 1 pack/day smoker. She has diffuse abdominal pain but also significant pain in the right groin. CT scan demonstrates a small bowel obstruction due to a loop of bowel stuck in a right inguinal hernia. Allergies Allergy/AdvReac Type Severity Reaction Status Date / Time No Known Drug Allergies Allergy Unknown . Verified 07/22/23 01:56 Home Medications Medication Instructions Recorded Confirmed Type ibuprofen 200 mg tablet 600 mg PO Q6H PRN Fever Or Pain 02/12/20 07/22/23 History albuterol sulfate 90 mcg/actuation 2 inh inhalation Q4H PRN shortness 08/25/22 07/22/23 Rx aerosol inhaler of breath or wheezing #6.7 grams fluticasone fur. 100 mcg-umeclid 1 ea inhalation QAM 07/22/23 07/22/23 History 62.5 mcg-vilant 25 mcg inhalat.powder (Trelegy Ellipta) Patient History Medical History Tobacco use Surgical History No significant past surgical history Social History Smoking Status: Current every day smoker Preferred Language: Kyrgyz current occupational status: employed current occupation: housekeeping at [employer] Feels Safe at Home: Yes Review of Systems Review of Systems: All systems reviewed & are unremarkable except as noted in HPI & below Physical Exam Constitutional: WD/WN, vitals as above Eyes: PERRL, conjunctivae normal, anicteric sclerae Neck: trachea midline, no thyromegaly Respiratory: normal respiratory effort; no respiratory distress and no labored breathing Cardiovascular: Rate/Rhythm: regular rate and regular rhythm Gastrointestinal (Abdomen): Inspection/Auscultation: abdomen normal to inspection and + abdomen distended Percussion/Palpation: + abdomen tender (Diffusely), abdomen soft and + hernia (Firm mass in right inguinal hernia, tenderness to palpation); no guarding and abdomen not rigid Skin: no rashes, warm and dry Psychiatric: A+Ox3, euthymic affect Results & Data Vital Signs (Past 12 Hours) Vital Signs Temp Pulse Pulse Resp BP BP Pulse Ox 07/22/23 06:40 65 14 133/74 98 07/22/23 06:35 69 15 134/75 99 07/22/23 06:30 68 16 135/78 100 07/22/23 06:25 67 16 130/76 99 07/22/23 06:20 73 14 130/75 98 07/22/23 06:15 70 16 109/70 97 07/22/23 06:10 82 19 100/64 97 07/22/23 06:08 76 19 98/70 L 97 07/22/23 06:07 80 16 102/67 97 07/22/23 06:05 67 15 105/67 97 07/22/23 06:00 68 20 109/70 97 07/22/23 02:30 81 20 105/65 97 07/21/23 23:00 78 20 122/59 L 98 07/21/23 19:41 37 C 129 H 20 102/72 96 O2 Del Method 07/22/23 06:40 Room Air 07/22/23 06:35 Room Air 07/22/23 06:30 Room Air 07/22/23 06:25 Room Air 07/22/23 06:20 Room Air 07/22/23 06:15 Room Air 07/22/23 06:10 Room Air 07/22/23 06:08 Room Air 07/22/23 06:07 Room Air 07/22/23 06:05 Room Air 07/22/23 06:00 Room Air 07/22/23 02:30 Room Air 07/21/23 23:00 Room Air 07/21/23 19:41 Room Air Laboratory Results 07/21/23 07/21/23 07/21/23 Range/Units 21:23 21:17 21:17 WBC 15.89 H (4.8-10.8) K/ul RBC 5.54 H (4.20-5.40) M/uL Hgb 17.2 H (12.0-16.0) g/dl Hct 50.1 H (37.0-47.0) % MCV 90.4 (80.0-100.0) fL MCH 31.0 (25.0-34.0) pg MCHC 34.3 (32.0-36.0) g/dL RDW Std Deviation 45.3 (36.4-46.3) fL RDW Coeff of Oren 13.5 (11.5-14.5) % Plt Count 408 H (130-400) K/uL MPV 9.4 (9.4-12.4) fL Immature Gran % (Auto) 0.6 % Neut % (Auto) 78.2 % Lymph % (Auto) 11.8 % Hooker % (Auto) 8.2 % Eos % (Auto) 0.8 % Baso % (Auto) 0.4 % Neut # (Auto) 12.42 H (1.40-6.50) K/uL Lymph # (Auto) 1.88 (1.20-3.40) K/uL Hooker # (Auto) 1.30 H (0.11-0.59) K/uL Eos # (Auto) 0.13 (0.00-0.50) K/uL Baso # (Auto) 0.07 (0.00-0.20) K/uL Immature Gran # (Auto) 0.09 (0.01-0.20) K/uL Sodium 135 L (136-145) mmol/L Potassium 4.6 (3.5-5.1) mmol/L Chloride 101 (98-107) mmol/L Carbon Dioxide 25 (21-32) mmol/L Anion Gap 9 (3-11) BUN 33 H (6-23) mg/dl Creatinine 1.57 H (0.6-1.2) mg/dl Est Cr Clr Drug Dosing 31.5 ml/min Est GFR ( Amer) 41.4 ml/min Est GFR (Non-Af Amer) 35.7 ml/min BUN/Creatinine Ratio 21.0 H (10-20) Glucose 106 H (70-99(Fasting)) mg/dl Calcium 10.1 (8.6-10.3) mg/dl Total Bilirubin 1.3 H (0.2-1.0) mg/dl AST 18 (13-39) U/L ALT 12 (7-52) U/L Alkaline Phosphatase 70 (34-104) U/L Total Protein 7.7 (6.0-8.3) gm/dl Albumin 4.6 (3.4-5.0) gm/dl Globulin 3.1 (2.5-4.0) gm/dl Albumin/Globulin Ratio 1.5 (0.9-2) Urine Color Urine Appearance (Clear) Urine pH (4.5-7.5) Ur Specific [place] (1.000-1.030) Urine Protein (Negative) Urine Glucose (UA) (Negative) Urine Ketones (Negative) Urine Blood (Negative) Urine Nitrite (Negative) Urine Bilirubin (Negative) Urine Urobilinogen (Negative) Ur Leukocyte Esterase (Negative) Urine WBC (Auto) (0-5) /hpf Urine RBC (Auto) (0-4) /hpf U Hyaline Cast (Auto) (0-5) /lpf U Epithel Cells (Auto) (0-5) /lpf Urine Bacteria (Auto) (Negative) Urine Opiates Screen (Neg) Ur Methadone, Qual (Neg) Urine Barbiturates (Neg) Ur Phencyclidine (PCP) (Neg) U Amphetamin/Meth Scrn (Neg) MDMA (Ecstasy) Screen (Neg) U Benzodiazepines Scrn (Neg) Ur Cocaine Metabolite (Neg) U Marijuana (THC) Screen (Neg) Adenovirus (PCR) Not Detected (NotDetected) B. pertussis DNA (PCR) Not Detected (NotDetected) B.parapertussis DNA PCR Not Detected (NotDetected) C. pneumoniae DNA (PCR) Not Detected (NotDetected) Coronavirus OC43 (PCR) Not Detected (NotDetected) Coronavirus HKU1 (PCR) Not Detected (NotDetected) Coronavirus 229E (PCR) Not Detected (NotDetected) SARS-CoV-2 (PCR) Not Detected Coronavirus NL63 (PCR) Not Detected (NotDetected) Human Metapneumovir PCR Not Detected (NotDetected) Influenza Type A (PCR) Not Detected Influenza Type B (PCR) Not Detected M. pneumoniae (PCR) Not Detected (NotDetected) Parainfluenza 1 (PCR) Not Detected (NotDetected) Parainfluenza 2 (PCR) Not Detected (NotDetected) Parainfluenza 3 (PCR) Not Detected (NotDetected) Parainfluenza 4 (PCR) Not Detected (NotDetected) RSV (RT-PCR) RSV (PCR) Not Detected (NotDetected) Entero/Rhino (PCR) Not Detected (NotDetected) 07/21/23 07/21/23 07/21/23 Range/Units 21:07 21:07 21:07 WBC (4.8-10.8) K/ul RBC (4.20-5.40) M/uL Hgb (12.0-16.0) g/dl Hct (37.0-47.0) % MCV (80.0-100.0) fL MCH (25.0-34.0) pg MCHC (32.0-36.0) g/dL RDW Std Deviation (36.4-46.3) fL RDW Coeff of Oren (11.5-14.5) % Plt Count (130-400) K/uL MPV (9.4-12.4) fL Immature Gran % (Auto) % Neut % (Auto) % Lymph % (Auto) % Hooker % (Auto) % Eos % (Auto) % Baso % (Auto) % Neut # (Auto) (1.40-6.50) K/uL Lymph # (Auto) (1.20-3.40) K/uL Hooker # (Auto) (0.11-0.59) K/uL Eos # (Auto) (0.00-0.50) K/uL Baso # (Auto) (0.00-0.20) K/uL Immature Gran # (Auto) (0.01-0.20) K/uL Sodium (136-145) mmol/L Potassium (3.5-5.1) mmol/L Chloride (98-107) mmol/L Carbon Dioxide (21-32) mmol/L Anion Gap (3-11) BUN (6-23) mg/dl Creatinine (0.6-1.2) mg/dl Est Cr Clr Drug Dosing ml/min Est GFR ( Amer) ml/min Est GFR (Non-Af Amer) ml/min BUN/Creatinine Ratio (10-20) Glucose (70-99(Fasting)) mg/dl Calcium (8.6-10.3) mg/dl Total Bilirubin (0.2-1.0) mg/dl AST (13-39) U/L ALT (7-52) U/L Alkaline Phosphatase (34-104) U/L Total Protein (6.0-8.3) gm/dl Albumin (3.4-5.0) gm/dl Globulin (2.5-4.0) gm/dl Albumin/Globulin Ratio (0.9-2) Urine Color Dark Yellow Urine Appearance Cloudy A (Clear) Urine pH 5.5 (4.5-7.5) Ur Specific [place] 1.021 (1.000-1.030) Urine Protein 1+ H (Negative) Urine Glucose (UA) Negative (Negative) Urine Ketones 1+ H (Negative) Urine Blood 2+ H (Negative) Urine Nitrite Negative (Negative) Urine Bilirubin 1+ H (Negative) Urine Urobilinogen Negative (Negative) Ur Leukocyte Esterase 1+ H (Negative) Urine WBC (Auto) >30 H (0-5) /hpf Urine RBC (Auto) 0-4 (0-4) /hpf U Hyaline Cast (Auto) 10-30 H (0-5) /lpf U Epithel Cells (Auto) 20-30 H (0-5) /lpf Urine Bacteria (Auto) 4+ H (Negative) Urine Opiates Screen Neg (Neg) Ur Methadone, Qual Neg (Neg) Urine Barbiturates Neg (Neg) Ur Phencyclidine (PCP) Neg (Neg) U Amphetamin/Meth Scrn Neg (Neg) MDMA (Ecstasy) Screen Neg (Neg) U Benzodiazepines Scrn Neg (Neg) Ur Cocaine Metabolite Neg (Neg) U Marijuana (THC) Screen Neg (Neg) Adenovirus (PCR) (NotDetected) B. pertussis DNA (PCR) (NotDetected) B.parapertussis DNA PCR (NotDetected) C. pneumoniae DNA (PCR) (NotDetected) Coronavirus OC43 (PCR) (NotDetected) Coronavirus HKU1 (PCR) (NotDetected) Coronavirus 229E (PCR) (NotDetected) SARS-CoV-2 (PCR) Cancelled Coronavirus NL63 (PCR) (NotDetected) Human Metapneumovir PCR (NotDetected) Influenza Type A (PCR) Cancelled Influenza Type B (PCR) Cancelled M. pneumoniae (PCR) (NotDetected) Parainfluenza 1 (PCR) (NotDetected) Parainfluenza 2 (PCR) (NotDetected) Parainfluenza 3 (PCR) (NotDetected) Parainfluenza 4 (PCR) (NotDetected) RSV (RT-PCR) Cancelled RSV (PCR) (NotDetected) Entero/Rhino (PCR) (NotDetected) Diagnostic Findings Exam(s): CT ABDOMEN + PELVIS With Contrast IV Amt: 90 ml optiray 320 EXAM: CT Abdomen and Pelvis With Intravenous Contrast CLINICAL HISTORY: Reason for exam: low abd pain, n/v. TECHNIQUE: Axial computed tomography images of the abdomen and pelvis with intravenous contrast. CTDI is 8.53 mGy and DLP is 381.96 mGy-cm. Automated exposure control was utilized for the study. A dose lowering technique was utilized adhering to the principles of ALARA. CONTRAST: Patient received 90 ml optiray 320 of IV contrast COMPARISON: CT abdomen/pelvis on 02/12/2020 FINDINGS: Lung bases: Mild bibasilar atelectasis. Mediastinum: Small hiatal hernia. ABDOMEN: Liver: Hepatomegaly. Gallbladder and bile ducts: Unremarkable. No calcified stones. No ductal dilation. Pancreas: Unremarkable. No mass. No ductal dilation. Spleen: Unremarkable. No splenomegaly. Adrenals: Unremarkable. No mass. Kidneys and ureters: Unremarkable. No hydronephrosis or obstructing stone. Stomach and bowel: Dilated fluid and gas-filled small bowel loops, compatible with small bowel obstruction secondary to the herniated small bowel within the right inguinal hernia. Small right inguinal hernia containing obstructed small bowel. Evaluation of the stomach is limited by underdistention. Diverticulosis without definite evidence of diverticulitis. Under distention of the descending colon and sigmoid colon limits evaluation. PELVIS: Appendix: Normal appendix. Bladder: Underdistended bladder limits evaluation. Reproductive: Retroverted uterus. ABDOMEN and PELVIS: Intraperitoneal space: Small amount of ascites. No free air. Bones/joints: No acute fracture. No dislocation. Soft tissues: See above. Vasculature: Atherosclerotic changes of the vasculature. No aortic aneurysm or dissection. Phleboliths in the pelvis. Lymph nodes: Unremarkable. No enlarged lymph nodes. IMPRESSION: 1. Dilated fluid and gas-filled small bowel loops, compatible with small bowel obstruction secondary to the herniated small bowel within the right inguinal hernia. 2. Small amount of ascites.
--- NOTE | 2023-07-22 06:59 | Emergency Department Note ---
Post Sedation Assessment Vital Signs Temp Pulse Pulse Resp BP BP Pulse Ox 07/22/23 02:30 81 20 105/65 97 07/21/23 23:00 78 20 122/59 L 98 07/21/23 19:41 37 C 129 H 20 102/72 96 O2 Del Method 07/22/23 02:30 Room Air 07/21/23 23:00 Room Air 07/21/23 19:41 Room Air Recovery Score Activity: Moves 4 extremities Respiration: Deep Breath/Cough Circulation: +/-20% PreAnes Value Consciousness: Fully Awake Oxygen Saturation: > 92% On Room Air Post Anesthesia Score: 10 Discharge Sedation Level of Care: Fast Track Phase II Unexpected Event: None Post Sedation Plan On clinical assessment, the patient appears to have tolerated the sedation without complications. Patient is recovering as anticipated. Patient will continue to be monitored by nursing and may be discharged when sedation discharge criteria are met per below protocol. Upon Completions of procedure up to 15 minutes continue every 5 minute vital signs and the P.A.R. score; then discharge to a Phase I or Fast Track to Phase II per the following guidelines: * Discharge Patient to appropriate Phase II area if PAR is 8 or greater or return to pre- procedure baseline. The post - procedure orders will be as directed. * If PAR score is less than 8 or not return to pre-procedure baseline then patient will follow Phase I monitoring till PAR is reached for Phase II. The Phase I may be done in procedure room or may call to secure a Phase I area. * If naloxone or flumazenil are used for reversal, hold in Phase I for continued monitoring from when last reversal dose was given for a minimum of 60 minutes or longer pending the nurse and/or physician discretion of patient condition before discharge to Phase II. Please call the Sedation Physician to re-evaluate and complete post-note for discharge to Phase II area. Do NOT discharge from procedure sedation or Phase 1 until post- sedation evaluation note is complete by procedure /sedation MD Sedation Discharge Instructions to be given to the patient at discharge to home. Sedation Data Sedation Times Sedation Start Date: 07/22/23 Sedation Start Time: 06:03 Sedation End Date: 07/22/23 Sedation End Time: 06:10 Total Sedation Time: 7 Procedure Times Procedure Start Time:: 06:07 Procedure End Time: 06:08
[2023-07-22] MEDS ORDERED: SODIUM CHLORIDE 0.9% 1,000 ML IV SCH (07:00)
[2023-07-22 07:46] LABS: Basophils # (auto) 0.07 K/uL (0.00-0.20); Basophils % (auto) 0.7 %; Eosinophils # (auto) 0.31 K/uL (0.00-0.50); Eosinophils % (auto) 2.9 %; Hemoglobin 13.3 g/dl (12.0-16.0); Immature Granulocytes # (auto) 0.03 K/uL (0.01-0.20); Immature Granulocytes % (auto) 0.3 %; Lymphocytes # (auto) 1.91 K/uL (1.20-3.40); Lymphocytes % (auto) 18.1 %; Mean Corpuscular Hemoglobin 31.1 pg (25.0-34.0); Mean Corpuscular Hgb Conc 34.1 g/dL (32.0-36.0); Mean Corpuscular Volume 91.3 fL (80.0-100.0); Monocytes # (auto) 1.16 K/uL (0.11-0.59); Neutrophils # (auto) 7.07 K/uL (1.40-6.50); Platelet Count 278 K/uL (130-400); RDW Coefficient of Variation 13.5 % (11.5-14.5); RDW Standard Deviation 45.1 fL (36.4-46.3); Red Blood Count 4.27 M/uL (4.20-5.40); White Blood Count 10.55 K/ul (4.8-10.8)
[2023-07-22 07:58] LABS: BUN Creatinine Ratio 30.3 (10-20); Calcium 7.1 mg/dl (8.6-10.3); Est GFR (African American) 72.3 ml/min; Est GFR (Non-African American) 62.4 ml/min; Magnesium 1.5 mg/dl (1.7-2.4); Potassium 3.8 mmol/L (3.5-5.1)
[2023-07-22] MEDS ORDERED: NON-FORMULARY MEDICATION (Fluticasone-Umeclidin-Vilanter [Trelegy Ellipta] 100-62.5-25 mcg INH SCH (09:00)
[2023-07-22] MEDS: UMECLIDINIUM/VILANTEROL 62.5/25MCG 7 PUFFS/INHALER INH SCH (09:48)
[2023-07-22] MEDS: FLUTICASONE FUROATE 100MCG 14 PUFFS/INHALER INH SCH (09:48)
[2023-07-22] MEDS: PIPERACILLIN/TAZOBACTAM 4.5 GM in DEXTROSE 5% MINI-B 100 ML IV SCH ×2 (11:22→21:08)
--- NOTE | 2023-07-22 13:16 | Hospitalist Progress Note ---
Date of Service July 22, 2023 Assessment & Plan (1) SBO (small bowel obstruction): Plan: 58-year-old female with past medical significant for giant bullous emphysema, COPD, history of pneumonia, cholesteatoma of right ear s/p mastoidectomy, ongoing tobacco abuse, mixed conductive and sensorineural hearing loss of both ears presents with abdominal pain for last 2 days [employer] a/w decreased PO intake/N and V. She was found to have SBO at ED. She is being managed for the following: Small bowel obstruction Admitting CT scan showing:Dilated fluid and gas-filled small bowel loops, compatible with small bowel obstruction secondary to the herniated small bowel within the right inguinal hernia. Surgery consulted, who reduced hernia Patient reports improvement in her belly pain, denies further nausea and vomiting. N.p.o. status, advance diet when cleared per surgery. IV fluid changed to half NS and D5W. Manage pain and nausea. Monitor and replete electrolytes. UTI: Follow culture, Started on Zosyn, continue for now. CAIO.: Admitting Creatinine 1.5, status post IV fluid, resolved. Leukocytosis: Seems chronic. Possibly from smoking Elevated hemoglobin: Possibly dehydration. Follow repeat labs -improved COPD: Continue home inhalers. Currently seems stable Tobacco abuse: Needs counseling DVT prophylaxis: SCDs for now Disposition: DC With clearance from surgery. Full code Admission and Anticipated Discharge Date Admission Date: July 22, 2023 Subjective Patient was seen and examined at bedside. Patient was lying in bed, on room air, resting comfortably, not in any acute distress. Patient reports improvement in her belly pain, improvement in her nausea and vomiting. Patient reports feeling better, denies headache or dizziness or chest pain or sore throat or cough. Patient reports improving frequency/burning while passing urine. Physical Exam Physical Exam: GENERAL: Alert and oriented x3. NAD, on RA. Appears older than stated age. HEENT: No pallor, no icterus. Pupils equal, round and reactive to light. Oral mucosa moist. NECK: No JVD, no neck masses. HEART: S1 and S2 heard. Regular rate and rhythm. No murmur, no gallop. RESPIRATORY SYSTEM: Normal AP diameter. No accessory muscle use. No wheezing, no crackles. ABDOMEN: Soft, bowel sounds present, nontender, no distention. CENTRAL NERVOUS SYSTEM: No facial droop. Speech is clear. Obeys simple commands. Moves extremities. EXTREMITIES: No edema, no erythema seen. Results & Data Results & Data Vital Signs (Past 12 Hours) Vital Signs Temp Pulse Pulse Resp BP BP Pulse Ox 07/22/23 10:40 66 18 104/66 94 07/22/23 08:14 36.4 C L 70 20 104/65 99 07/22/23 07:01 70 07/22/23 06:55 71 07/22/23 06:40 65 14 133/74 98 07/22/23 06:35 69 15 134/75 99 07/22/23 06:30 68 16 135/78 100 07/22/23 06:25 67 16 130/76 99 07/22/23 06:20 73 14 130/75 98 07/22/23 06:15 70 16 109/70 97 07/22/23 06:10 82 19 100/64 97 07/22/23 06:08 76 19 98/70 L 97 07/22/23 06:07 80 16 102/67 97 07/22/23 06:05 67 15 105/67 97 07/22/23 06:00 68 20 109/70 97 07/22/23 02:30 81 20 105/65 97 O2 Del Method 07/22/23 10:40 Room Air 07/22/23 08:14 Room Air 07/22/23 07:01 07/22/23 06:55 07/22/23 06:40 Room Air 07/22/23 06:35 Room Air 07/22/23 06:30 Room Air 07/22/23 06:25 Room Air 07/22/23 06:20 Room Air 07/22/23 06:15 Room Air 07/22/23 06:10 Room Air 07/22/23 06:08 Room Air 07/22/23 06:07 Room Air 07/22/23 06:05 Room Air 07/22/23 06:00 Room Air 07/22/23 02:30 Room Air
[2023-07-22] MEDS: D5W AND 1/2NSS 1,000 ML IV SCH ×2 (13:36→21:08)
--- NOTE | 2023-07-22 14:17 | Electrocardiogram Report ---
Test Reason : Blood Pressure : / mmHG Vent. Rate : 105 BPM Atrial Rate : 105 BPM P-R Int : 128 ms QRS Dur : 070 ms QT Int : 344 ms P-R-T Axes : 083 097 085 degrees QTc Int : 454 ms Sinus tachycardia Biatrial enlargement Rightward axis Pulmonary disease pattern Abnormal ECG No previous ECGs available Confirmed by Delfino Durham [id number]) on 07/22/2023 2:16:59 PM Referred By: REFERRED SELF Confirmed By:Delfino Durham
--- NOTE | 2023-07-22 15:01 | Communication Note ---
Date of Service: July 22, 2023 Patient evaluated at 2:30 pm. Feeling much better, no abdominal pain just soreness down in right groin no n,v having liquid bowel movements hungry, wants something to eat Abdomen soft, nondistended, nontender, bowel sounds in all 4 quadrants no right inguinal hernia on palpation Okay for clear liquids, advance as tolerated. If tolerates advanced diet , okay to discharge from surgical standpoint. Educated patient on recurrence of hernia with signs of obstruction and to prevent to emergency room if so for further evaluation. Avoid heavy lif ting/straining and constipation. Can follow-up with Dr. Ayala as outpatient to discuss elective hernia repair. Discussed with Dr. Ayala who agrees with above.
[2023-07-22] MEDS: MAGNESIUM SULFATE / D5W 1 GM/100 ML BAG IV SCH ×2 (16:40→16:45)
[2023-07-23] MEDS: PIPERACILLIN/TAZOBACTAM 4.5 GM in DEXTROSE 5% MINI-B 100 ML IV SCH (05:04)
[2023-07-23 07:50] LABS: Hematocrit (blood only) 37.1 % (37.0-47.0); Hemoglobin 12.9 g/dl (12.0-16.0); Mean Corpuscular Hemoglobin 31.2 pg (25.0-34.0); Mean Corpuscular Hgb Conc 34.8 g/dL (32.0-36.0); Mean Corpuscular Volume 89.6 fL (80.0-100.0); Mean Platelet Volume 9.2 fL (9.4-12.4); Platelet Count 285 K/uL (130-400); RDW Coefficient of Variation 13.3 % (11.5-14.5); Red Blood Count 4.14 M/uL (4.20-5.40); White Blood Count 7.89 K/ul (4.8-10.8)
[2023-07-23 08:09] LABS: BUN Creatinine Ratio 12.5 (10-20); Calcium 7.7 mg/dl (8.6-10.3); Creatinine Clr Calc Pharmacy 61.9 ml/min; Est GFR (African American) 93.5 ml/min; Est GFR (Non-African American) 80.7 ml/min; Phosphorus 2.1 mg/dl (2.5-4.9); Potassium 3.7 mmol/L (3.5-5.1)
[2023-07-23] MEDS: FLUTICASONE FUROATE 100MCG 14 PUFFS/INHALER INH SCH (08:43)
[2023-07-23] MEDS: UMECLIDINIUM/VILANTEROL 62.5/25MCG 7 PUFFS/INHALER INH SCH (08:43)
[2023-07-23] MEDS ORDERED: CIPROFLOXACIN 500 MG TAB PO SCH (12:00)
--- NOTE | 2023-07-23 12:15 | Discharge Summary ---
Date of Service July 23, 2023 Admission HPI Per Admitting Provider 58-year-old female with past medical significant for giant bullous emphysema, COPD, history of pneumonia, cholesteatoma of right ear s/p mastoidectomy, ongoing tobacco abuse, mixed conductive and sensorineural hearing loss of both ears presents with abdominal pain for last 2 days. Having abdominal last 2 days with associated nausea and vomiting. Last bowel movement was couple of days ago. Micturating okay. Denies any fevers. Has cough but she says she smokes. Denies chest pain or shortness of breath. No headaches. No runny nose or sore throat. Currently hemodynamically stable. Somewhat hard of hearing. Past medical history. As mentioned above. Past surgical history. Tympanoplasty mastoidectomy without ossicular reconstruction. Social history. . Smokes half pack a day for last 40 years. No alcohol use. No drug use. Family history. Mother had breast cancer. Admission Exam Per Admitting Provider General-Not in distress Head- atraumatic Eyes- PERRL. ENT- oropharynx clear Neck- supple, no JVD. Lungs- clear to auscultation , no wheezing or crackles. Heart- regular rhythm; no murmur, no gallop. Abdomen- sluggish bowel sounds, soft, diffuse tender , mild distension Extremities- no pretibial edema, no erythema seen Neuro- alert, oriented x 3; PERRL no facial palsy; no dysarthria; obeys simple commands Skin- warm & dry Principal Diagnosis Small bowel obstruction secondary to incarcerated inguinal hernia x right UTI Acute kidney injury Discharge Exam GENERAL: Alert and oriented x3. NAD, on RA. HEENT: No pallor, no icterus. Pupils equal, round and reactive to light. Oral mucosa moist. NECK: No JVD, no neck masses. HEART: S1 and S2 heard. Regular rate and rhythm. No murmur, no gallop. RESPIRATORY SYSTEM: Normal AP diameter. No accessory muscle use. No wheezing, no crackles. ABDOMEN: Soft, bowel sounds present, nontender, no distention. CENTRAL NERVOUS SYSTEM: No facial droop. Speech is clear. Obeys simple commands. Moves extremities. EXTREMITIES: No edema, no erythema seen. Discharge Data Allergies Allergy/AdvReac Type Severity Reaction Status Date / Time No Known Drug Allergies Allergy Unknown . Verified 07/22/23 01:56 Consultations 07/22/23 04:48 ED Decision to Admit Stat 07/22/23 06:52 Consult General Surgery Routine Ordered Studies 07/21/23 23:49 CT abd pelvis IV con only Stat Hospital Course (1) SBO (small bowel obstruction): 58-year-old female with past medical significant for giant bullous emphysema, COPD, history of pneumonia, cholesteatoma of right ear s/p mastoidectomy, ongoing tobacco abuse, mixed conductive and sensorineural hearing loss of both ears presents with abdominal pain for last 2 days HIGH [employer]IFT [employer]IVER a/w decreased PO intake/N and V. She was found to have SBO at ED. She was managed for the following: Small bowel obstruction Admitting CT scan showing:Dilated fluid and gas-filled small bowel loops, compatible with small bowel obstruction secondary to the herniated small bowel within the right inguinal hernia. Surgery consulted, who reduced hernia Patient reports improvement in her belly pain, denies further nausea and vomiting. Tolerated advancement of diet well, discussed with surgery, okay to discharge from the point of view.. Patient hemodynamically stable, reports significant improvement in her belly pain. UTI: Zosyn to ciprofloxacin on discharge to complete the course. Probiotics added. CAIO.: Admitting Creatinine 1.5, status post IV fluid, resolved. Leukocytosis: Seems chronic. Possibly from smoking Elevated hemoglobin: Possibly dehydration. Follow repeat labs -improved COPD: Continue home inhalers. Currently seems stable Tobacco abuse: Patient declines nicotine patch, states she has not thought about smoking cessation. DVT prophylaxis: SCDs for now Full code Patient is being discharged home with following instruction at the point of discharge: Follow-up with your primary care physician within a week time and likely you will need labs CBC/CMP/magnesium/phosphorus. Establish and follow-up with general surgeon upon discharge. You will be discharged on antibiotic for your UTI to complete the course. Probiotics will be added. Take your medications as prescribed. Please make sure that you are able to get your medications today by calling your pharmacy before you leave the hospital so that your treatment continuity is not broken. [facility] Attestation I certify that this patient is under my care and that I, or a physicians client account assistant working with me, had a face to-face encounter that meets the formerly [facility] [id number] encounter requirements with this patient. The encounter with the patient was in whole, or in part, for the following medical condition, which is the primary reason for home health care (list medical condition): I certify that, based on my findings, the following services are medically necessary home health services: My clinical findings support the need for the above services because: Further, I certify that my clinical findings support that this patient is homebound (i.e. absences from home require considerable and taxing effort and are for medical reasons or catholic services or infrequently or of short duration when for other reasons) because: Certification for Home Health Services: Based on the above findings, I certify that this patient is confined to the home and needs intermittent nursing home care, physical therapy and/or speech therapy or continues to need occupational therapy. The patient is under my care, and I have initiated the establishment of the plan of care. This patient will be followed by a physician who will periodically review the plan of care. Total Time Total Time Spent Total Time Spent (In Minutes): 40 Discharge Plan Discharge Items Patient Disposition: Home - Self-Care Reason For Visit: SBO Discharge Diagnosis: Small bowel obstruction secondary to incarcerated inguinal hernia x right UTI Acute kidney injury Activity: Resume your previous activity Non-emergency contact: Primary Care Provider Call non-emergency contact if: you have any medication questions, your symptoms worsen and your temperature is above 101 Follow-up/Referrals: Pedro Ayala MD [Physician] - Elly Denton CRNP [Outside Practitioners] - (Date & Time 07/27/2023 10:00 AM Provider MAGGIE Bronson Department [facility] ) Diet: Low Fat Diet Texture: Dental soft (bite-sized) Addtl Attending Provider Instructions: Follow-up with your primary care physician within a week time and likely you will need labs CBC/CMP/magnesium/phosphorus. Establish and follow-up with general surgeon upon discharge. You will be discharged on antibiotic for your UTI to complete the course. Probiotics will be added. Take your medications as prescribed. Please make sure that you are able to get your medications today by calling your pharmacy before you leave the hospital so that your treatment continuity is not broken. Addtl Retort Condenser Attendant Provider Instructions: You had a small bowel obstruction secondary to a right inguinal hernia contain ing a loop of your small bowel. This was able to be reduced without need for surgery. You should avoid heavy lifting/straining to avoid obstruction of hernia. If you notice a bulge in the right groin, lay down try to relax and push it back in. You need to seek emergency evaluation if you develop pain, inability to pas gas or have nausea and vomiting and a lump in the groin as you may have a recurrent hernia that is obstructed. You can follow-up with Dr. ayala in general surgery as outpatient to discuss elective hernia repair. Pending Studies at Discharge: No Stand-Alone Forms: My [facility] [employer], Smoking Cessation Medications and DC Order Prescriptions: New ciprofloxacin HCl 500 mg Tablet 500 mg PO BID 6 Days Qty: 12 0RF Advanced Probiotic 625 mg (10 billion cell) Capsule 2 cap PO DAILY 7 Days Qty: 14 0RF Continued ibuprofen 200 mg Tablet 600 mg PO Q6H PRN (Reason: Fever Or Pain) Trelegy Ellipta 100-62.5-25 mcg blister with device 1 ea INHALATION QAM albuterol sulfate 90 mcg/actuation HFA aerosol inhaler 2 inh inhalation Q4H PRN (Reason: shortness of breath or wheezing) Qty: 6.7 1RF Discharge Orders: Discharge Order (Routine); Ordered 07/23/23 Ordered By: Jorge Luis Roberts Admission Data Admit Date/Time: 07/22/23 05:19 Attending Provider: Jorge Luis Roberts Admit Provider: Manoj Pendleton Primary Care Provider: Jordan Garcia Other Providers: Manjo Pendleton ; Pedro Ayala
[2023-07-23] MEDS ORDERED: POT PHOSPHATE MONOBASIC W/ SOD TAB PO SCH (13:00)
[2023-07-24] MEDS ORDERED: ADVANCED PROBIOTIC 1250 MG CAPSULE PO SCH (09:00)
== END 2023-07-23 14:16 | disposition home or self-care (01) | DRG 394 ==
LOC: ED 19:27 → EDINP 07-22 05:19 → 3N 07-22 06:53
DX: N39.0 Urinary tract infection, site not specified; K40.30 Unilateral inguinal hernia, with obstruction, without gangrene, not specified as recurrent; H90.6 Mixed conductive and sensorineural hearing loss, bilateral; J43.9 Emphysema, unspecified; F17.210 Nicotine dependence, cigarettes, uncomplicated; N17.9 Acute kidney failure, unspecified; E86.0 Dehydration

== ENCOUNTER 2023-09-27 23:33 | Inpatient (IN) ==
--- OUTSIDE RECORDS SUMMARY | 2023-09-27 23:37 | External Medical Summary | Summary of Care ---
Author Name Unknown Organization [facility] Address [address] [address] Phone [phone] Care Team Providers Care Nuclear Physicist Name Role Phone Yvette Dong Primary Care Provider Reason for Visit * Reason Onset Date Comments Advice 07/27/2023 Encounter Details Date Type Department Care Team (Late st Contact Info) Description 07/27/2023 Telephone Family Practice [facility] [address] [place] [address] Yvette Dong CRNP [address] [place] [address] Advice Allergies No known active allergiesdocumented as of this encounter (statuses as of 07/30/2023) Medications Medication Sig Dispensed Refills Start Date End Date Status Ventolin HFA 108 (90 Base) MCG/ACT Inhalation Aerosol SolutionIndications :Pneumonia due to infectious organism, unspecified laterality, unspecified part of lung Inhale 2 Puffs by mouth every 4 hours as needed for Wheezing. 18 g 3 10/07/2022 Active guaiFENesin ER 600 MG Oral Tablet Extended Release 12 Hour (Mucinex)Indication s:Pneumonia due to infectious organism, unspecified laterality, unspecified part of lung Take 1 Tablet by mouth 2 times a day as needed for Congestion. Take with plenty of water. Do not cut, crush or chew 40 Tablet 2 10/07/2022 Active Additional Information Patient not taking.Reported on 06/24/2023 Sujata Adamson 100-62.5-25 MCG/ACT Aerosol Powder Breath Activated Inhale 1 Puff by mouth once. 0 06/12/2023 Active Ciprofloxacin HCl 500 MG Oral Tablet (Cipro)Indications: Urinary tract infection without hematuria, site unspecified Take 1 Tablet by mouth in the morning and 1 Tablet before bedtime. For 6 days. 0 07/23/2023 Active Advanced Probiotic Oral Capsule TAKE 2 CAPSULES BY MOUTH DAILY X1 WEEK 0 07/23/2023 Active Hospital, Clinic, or Other Facility Administered Medication Ordered Dose Route Frequency Start Date End Date Status Albuterol Sulfate (Proventil) (2.5 MG/3ML) 0.083% inhalation solution 2.5 mgIndications:COPD, severity to be determined (HCC) 2.5 mg NEBULIZER ONCE PRN 10/07/2022 10/07/2023 Active documented as of this encounter (statuses as of 07/30/2023) Active Problems Problem Noted Date Diagnosed Date Diverticulosis 07/27/2023 Small bowel obstruction 07/27/2023 Right inguinal hernia 07/27/2023 Leukocytosis 07/27/2023 COPD, group B, by GOLD 2017 classification 03/05 Pneumonia of left upper lobe due to infectious o rganism 01/26/2023 Giant bullous emphysema 01/26/2023 Tobacco use disorder 09/04/2022 Status post mastoidectomy 02/06/2017 Cholesteatoma of right ear 12/22/2016 Mixed conductive and sensori neural hearing loss of both ears 12/22/2016 documented as of this encounter (statuses as of 07/30/2023) Immunizations Name Administration Dates Next Due Pneumococcal Conjugate Vaccine, 20-valent (Prevn ar20) 06/26/2023 SEASONAL INFLUENZA, PF, 6 M & Above, IM , (FLULAVAL or FLUZONE) 06/24/2023 documented as of this encounter Social History Tobacco Use Types Packs/Day Years Used Date Smoking Tobacco: Every Day Cigarettes 0.5 40 Started: 1979 Comments:1/2 ppd x 40+ years Alcohol Use Standard Drinks/Week Comments No 0 (1 standard drink = 0.6 oz pur e alcohol) Sex and Gender Information Value Date Recorded Sex Assigned at Not on file Gender Identity Not on file Sexual Orientation Not on file Job Start Date Occupation Industry Not on file Not on file Not on file documented as of this encounter Miscellaneous Notes * Telephone Encounter - Catherine Dalal LPN - 07/30/2023 11:16 AM EDT Called pt-- Informed of message below. She states " I will not be able to return with limitations that day, but I will see what the surgeons office has to say and go from there" * Telephone Encounter - MAGGIE Bronson - 07/28/2023 8:18 AM EDT She can return with limitations on 08/03, and then will get further guidance from surgeon's office when she sees them on 08/03 * Telephone Encounter - MELISA Jenkins - 07/27/2023 4:34 PM EDT Patient is confused. FMLA contacted her as well. Patient would like to know if she can RTW on 08/03OR if she should remain off until she is able to see the Surgeon which is also scheduled for 08/03. Please clarify for the patient: [phone] * Telephone Encounter - MELISA Dai - 07/27/2023 4:00 PM EDT Josette with [facility] calling to request clarification for FMLA forms she has received. Josette needs to know if the pt is restricted from returning to work or are there just work limitations. Questions responses for number 5, 6, and 7 on the FMLA forms are confusing. Phone is [phone] ext [phone] Fax is [phone] documented in this encounter Plan of Treatment Upcoming Encounters Date Type Department Care Team (Late st Contact Info) Description 08/03/2023 2:15 PM EDT Office Visit General Surgery, [facility] [address] [place] [address] Ted Salazar MD [address] [place] [address] 09/24/2023 2:40 PM EST Office Visit [facility] [address] [place] [address] Elly Denton CRNP [address] [place] [address] 10/27/2023 2:40 PM EST Office Visit [facility] [address] [place] [address] Yvette Dong CRNP [address] [place] [address] Health Maintenance Due Date Last Done Comments DISCUSS TOBACCO CESSATION (REFER TO SMARTSET #6026) 1965 Hepatitis B (1 of 3 - 3-dose series) 1965 COVID-19 Vaccine (#1) 1965 Depression Screening 1976 HIV Screening 02/10/1979 Alpha-1 Antitrypsin 02/10/1982 Hepatitis C Screening 02/10/1982 DTaP,Tdap,and Td Vaccines (1 - Tdap) 02/10/1983 Pap Smear 02/10/1985 Cervical Cancer Screening 02/10/1994 HPV/Co-Test 02/10/1994 Cologuard 02/10/2009 Colonoscopy 02/10/2009 Colorectal Cancer Screening 02/10/2009 Fecal Occult Blood Test 02/10/2009 Sigmoidoscopy 02/10/2009 Zoster Vaccines (1 of 2) 02/10/2014 Mammogram 10/03/2023 10/03/2022, 09/24/2022 O2 ASSESSMENT COMPLETED IN PAST YEAR FOR COPD 07/27/2024 07/27/2023 Lipid Panel 09/16/2027 09/16/2022 Influenza Vaccine (FLU shot) Completed 06/24/2023, 06/24/2023 LUNG CANCER SCREENING - USE SMARTSET 73710 Completed 06/26/2023, 2023, 12/26/2022, Additional history exists Pneumococcal Vaccine: Pediatrics (0 to 5 Years) and At-Risk Patients (6 to 64 Years) Completed 06/26/2023 GARDASIL-HPV IMMUNIZATION SERIES Aged Out No longer eligible based on patient's age to complete this topic MENINGOCOCCAL (MENACTRA/MENVEO) Aged Out No longer eligible based on patient's age to complete this topic documented as of this encounter Medical Devices Not on filedocumented as of this encounter Care Teams Nuclear Physicist Relationship Specialty Start Date End Date Yvette Dong CRNP [address] [place] [address] PCP - General Nurse Practitioner 07/27/23 documented as of this encounter
--- OUTSIDE RECORDS SUMMARY | 2023-09-27 23:37 | External Medical Summary | Summary of Care ---
Author Name Unknown Organization [facility] Address [address] [address] Phone [phone] Care Team Providers Care Tour Manager Name Role Phone Yvette Dong Primary Care Provider Reason for Visit * Reason Comments NEW PATIENT Right inguinal herni a. * Evaluate & Treat - Unlimited Visits (Within 3 days (urgent)) - Pending Review Specialty Diagnoses / Procedures Referred By Emery mcgraw Referred To Contact General Surgery Diagnoses Right inguinal hernia Small bowel obstruction (HCC) Elly Ashley CRNP [address] [place] [address] Referral ID Status Reason Start Date Expiration Date Visits Requested Visits Authorized [id number] Pending Review Specialty Services Required [phone] Encounter Details Date Type Department Care Team (Late st Contact Info) Description 08/03/2023 2:15 PM EDT Office Visit General Surgery, [facility] [address] [place] [address] Ted Salazar MD [address] [place] [address] Right inguinal hernia* Allergies No known active allergiesdocumented as of this encounter (statuses as of 08/03/2023) Medications Medication Sig Dispensed Refills Start Date [...] Additional Information Patient not taking.Reported on 06/24/2023 Trelegy Ellipta 100-62.5-25 MCG/ACT Aerosol Powder Breath Activated Inhale [...] as of this encounter (statuses as of 08/03/2023) Active Problems Problem Noted Date Diagnosed Date [...] as of this encounter (statuses as of 08/03/2023) Immunizations Name Administration Dates Next Due Pneumococcal Conjugate Vaccine, 20-valent (Prevn ar20) 06/26/2023 SEASONAL INFLUENZA, PF, 6 M & Above, IM , (FLULAVAL or FLUZONE) 06/24/2023 documented as of this encounter Social History Tobacco Use Types Packs/Day Years Used Date Smoking Tobacco: Every Day Cigarettes 0.5 40 Started: 1980 Comments:10/06 ppd x 40+ years Alcohol Use Standard Drinks/Week Comments No 0 (1 standard drink = 0.6 oz pur e alcohol) Sex and Gender Information Value Date Recorded Sex Assigned at Not on file Gender Identity Not on file Sexual Orientation Not on file Job Start Date Occupation Industry Not on file Not on file Not on file documented as of this encounter Last Filed Vital Signs Vital Sign Reading Time Taken Comments Blood Pressure - - Pulse - - Temperature - - Respiratory Rate - - Oxygen Saturation - - Inhaled Oxygen Concentration - - Weight 52.6 kg (116 lb) 08/03/2023 2:10 PM EDT Height - - Body Mass Index 19.91 07/27/2023 10:17 AM EDT documented in this encounter Progress Notes * Ted Salazar MD - 08/03/2023 2:09 PM EDT CC- previously incarcerated right inguinal hernia Ref: ELLY ASHLEY[[id number]] [address] [place] [address] (office) [phone] (fax) HPI.: Jenn Sanchez is a 58 year old female seen in consultation for a right inguinal hernia. Theyhave had mild symptoms present for weeks duration. Their symptomsdid not start at work. The pain isdull and intermittent. Their lump is reducible. She has no Sxs of chronic constipation,chronic cough,difficulty urinating. Past Medical History No past medical history on file. Past Surgical History Past Surgical History: Procedure Laterality Date REVISE MIDDLE EAR & MASTOID Right 01/14/2017 TYMPANOPLASTY MASTOIDECTOMY WITHOUT OSSICULAR RECONSTRUCTION performed by Flash Sims II, MD at OR [facility] REVISE MIDDLE EAR & MASTOID Right 02/04/2017 TYMPANOPLASTY MASTOIDECTOMY WITHOUT OSSICULAR RECONSTRUCTION performed by Flash Sims II, MD at OR [facility] Medications: Current Outpatient Medications Medication Sig Dispense Refill Ventolin HFA 108 (90 Base) MCG/ACT Inhalation Aerosol Solution Inhale 2 Puffs by mouth every 4 hours as needed for Wheezing. 18 g 3 guaiFENesin ER 600 MG Oral Tablet Extended Release 12 Hour (Mucinex) Take 1 Tablet by mouth 2 timesa day as needed for Congestion. Take with plenty of water. Do not cut, crush or chew (Patient not taking: Reported on 06/24/2023) 40 Tablet 2 Trelegy Ellipta 100-62.5-25 MCG/ACT Aerosol Powder Breath Activated Inhale 1 Puff by mouth once. Ciprofloxacin HCl 500 MG Oral Tablet (Cipro) Take 1 Tablet by mouth in the morning and 1 Tablet before bedtime. For 6 days. Advanced Probiotic Oral Capsule TAKE 2 CAPSULES BY MOUTH DAILY X1 WEEK Current Facility-Administered Medications Medication Dose Route Frequency Provider Last Rate Last Admin Albuterol Sulfate (Proventil) (2.5 MG/3ML) 0.083% inhalation solution 2.5 mg 2.5 mg Nebulizer Once PRN Elly Ashley CRNP 2.5 mg at 11/07/22 1332 Allergies: Allergies as of 08/03/2023 (No Known Allergies) Family History Family History Problem Relation Age of Onset Breast Cancer Mother 77 Social History Social History Socioeconomic History Marital status: Spouse name: Not on file Number of children: Not on file Years of education: Not on file Highest education level: Not on file Occupational History Not on file Tobacco Use Smoking status: Every Day Packs/day: 0.50 Years: 40.00 Additional pack years: 0.00 Total pack years: 20.00 Types: Cigarettes Start date: 1979 Smokeless tobacco: Not on file Tobacco comments: 1/2 ppd x 40+ years Vaping Use Vaping Use: Never used Substance and Sexual Activity Alcohol use: No Drug use: No Sexual activity: Not on file Other Topics Concern Not on file Social History Narrative Not on file Social Determinants of Health Financial Resource Strain: Not on file Food Insecurity: Not on file Transportation Needs: Not on file Physical Activity: Not on file Stress: Not on file Social Connections: Not on file Intimate Partner Violence: Not on file Housing Stability: Not on file ROS: GEN: no weight loss, fever, fatigue HEENT: no changes in vision or hearing, no sinus problems, no sore throat, no hoarseness RESPIRATORY: no cough, wheezing, SOB or change in breathing CARDIOVASCULAR: no exertional chest pain, dyspnea, palpitations GI: no melena or hemetemesis, no change in bowel habits, no nausea or vomiting : no dysuria, hematuria, frequency MUSCULOSKELETAL: no change in joint pains, no new arthritis PSYCHIATRIC: no significant anxiety or depression, unchanged sleep pattern HEME: no bleeding tendency, no clotting tendency NEURO: no significant headache, no seizures , no tremors SKIN: no new rashes, no itching Physical Exam: There were no vitals taken for this visit. Constitutional: alert, healthy, well nourished Head: normocephalic, atraumatic Eyes: conjunctiva non-injected, sclera white Ears: pinna normal shape and color Nose: no purulent discharge Mouth: lips, mucosa, and tongue normal Neck: supple, no adenopathy Lungs: clear to auscultation, breath sounds are equal and symmetric Heart: regular rate & rhythm and no murmur, gallops or rubs Abdomen: soft, non-tender, normal bowel sounds, no hernias Back: normal curvature, normal ROM, no CVA tenderness Extremities: no joint deformities, effusion, or inflammation, no edema, no skin discoloration Neuro: alert, gait normal, motor normal Skin: no obvious rashes or significant lesions Exam: reducible right inguinal hernia; left negative IMP: Jenn Sanchez is a 58 year old female with a right inguinal hernia which is currently symptomatic. For this reason, I have recommended that the patient consider a hernia repair. This could be performed in open or laparoscopic approach. We reviewed that for hernias, laparascopic surgery is useful in bilateral, recurrent hernias, when associated with umbilical hernia, or where there is a benefit seen in shorter recovery time. Risks of laparascopic surgery including a slightly higher recurrence rate, slightly higher chance of nerve injury and possibility of injury to bowel or blood vesselswere also discussed. I typically recommend an open procedure for initial inguinal hernias that would be difficult laparoscopically due to previous surgeries or when recovery time is not an issue. I discussed the surgery in detail and the complications related to the surgery and the anesthesia. Risks include, but are not limited to: recurrence of the hernia, persistent pain in the groin from injury to or entrapment of groin nerves, numbness, seroma formation, bleeding, infection, a significant risk of urinary retention in males with a bilateral repair and mesh infection requiring mesh removal. Patient understands these risks. Expected same day nature of surgery and postoperative recovery period reviewed. Activity restrictions postoperatively to include no heavy lifting or high impact activity for four to six weeks reviewed. All questions were answered to the patient's satisfaction and consent was signed. We also reviewed the signs and symptoms of incarceration and the patient was instructed to go directly to the emergency room should this occur. PLAN: Laparoscopic right inguinal hernia possible left at [facility] early next year. Ted Salazar MD 08/03/2023 2:09 PM documented in this encounter Nursing Notes * Angelina Chan MED ASSIST - 08/03/2023 2:11 PM EDT Chief Complaint Patient presents with NEW PATIENT Right inguinal hernia. VERIFIED PATIENT. No pain. Patient is here discuss options today. documented in this encounter Plan of Treatment Upcoming Encounters Date Type Department Care Team (Late st Contact Info) Description 09/24/2023 2:40 PM EST Office Visit [facility] [address] [place] [address] Elly Ashley CRNP [address] [place] [address] 10/27/2023 2:40 PM EST Office Visit [facility] [address] [place] [address] Yvette Dong CRNP [address] [place] [address] 12/16/2023 12:45 PM EDT Office Visit General Surgery, [facility] [address] [place] [address] Ted Salazar MD [address] [place] [address] Scheduled Referrals Name Type Priority Associated Diagnoses Orde r Schedule SURGERY REFERRAL OP Referral Within 3 day s (urgent) Right inguinal hernia Small bowel obstruction (HCC) Ordered: 07/27/2023 Health Maintenance Due Date Last Done Comments DISCUSS TOBACCO CESSATION (REFER TO SMARTSET #[id number]) 1965 Hepatitis B (1 of 3 - [...] 06/24/2023 LUNG CANCER SCREENING - USE SMARTSET 52748 Completed 06/26/2023, 2023, 12/26/2022, Additional history exists [...] Not on filedocumented as of this encounter Visit Diagnoses Diagnosis Right inguinal hernia- Primary Inguinal hernia without mention of obstruction or gangrene, unilateral or unspecified, (not specified as recurrent) documented in this encounter Care Teams Tour Manager Relationship Specialty Start Date End Date Yvette Dong CRNP [address] [address] PCP - General Nurse Practitioner 07/27/23 documented as of this encounter
[2023-09-27] MEDS ORDERED: SODIUM CHLORIDE 0.9% 1,000 ML IV STA (23:49)
[2023-09-27] MEDS ORDERED: ONDANSETRON INJ 2 MG/ML 2 ML VIAL IV STA (23:58)
[2023-09-27] MEDS ORDERED: MoRPHine SULFATE 4 MG/ML 1 ML CARP\\VIAL IV STA (23:58)
--- NOTE | 2023-09-27 23:58 | Emergency Department Note ---
ED Provider Note History of Present Illness Chief Complaint: Abdominal Pain Stated Complaint: ABD PAIN Time Seen by Provider: 09/27/23 23:49 58-year-old female who presents to the emergency department with complaint of persistent lower abdominal pain, nausea and vomiting. The son is with her tonight, reporting that she was admitted to our facility a few months ago with a bowel obstruction secondary to an inguinal hernia. The patient admits that she was trying to wait until December to have elective surgery. The patient reports that she has had several episodes of similar pain, nausea and vomiting since she was admitted. She denies any focal groin pain or areas of swelling. The patient reports that she has not had a bowel movement for the past 3 days. She denies any fever or chills, urinary symptoms, chest pain, shortness of breath or cough. She rates her discomfort an 8 out of 10. Home Medications Medication Instructions Recorded Confirmed Type fluticasone fur. 100 mcg-umeclid 1 inh inhalation QAM 07/22/23 09/28/23 History 62.5 mcg-vilant 25 mcg inhalat.powder (Trelegy Ellipta) Allergies Allergy/AdvReac Type Severity Reaction Status Date / Time No Known Allergies Allergy Verified 09/28/23 00:31 Past Med/Surg History Medical History Tobacco use Surgical History No significant past surgical history Social History Smoking Status: Current every day smoker Tobacco Type: Cigarettes Second Hand Exposure: No; Do You Dip or Chew Tobacco: No; Hx Alcohol Use: No Hx Substance Use: No Preferred Language: Mongolian Communication Ability: Effective Manager Mining Required: No Beliefs That Will Affect Care: None Current Living Situation: Family current occupational status: employed current occupation: housekeeping at [employer] Feels Safe at Home: Yes Assistive Devices: None Physical Exam Vital Signs Vital Signs - 24 hr 09/27/23 23:34 09/28/23 00:53 09/28/23 01:25 Temperature 36.7 C Temperature Source Temporal Artery Scan Pulse Rate 121 H 83 Pulse Rate [Apical] 81 Pulse Rhythm [Apical] Regular Pulse Strength [Apical] Normal Respiratory Rate 18 16 15 Respiratory Effort / Characteristics Non-Labored Respiratory Depth Normal Blood Pressure 102/76 Blood Pressure [Left Arm] 144/76 H Blood Pressure Mean 84 Blood Pressure Mean [Left Arm] 98 Pulse Oximetry 96 96 98 Oxygen Delivery Method Room Air Room Air Sepsis Recent Fever Within 48 Hours No Sepsis New/Unexplained Change in Mental Status No Sepsis Action Taken by Nursing No Action Required 09/28/23 01:31 Temperature Temperature Source Pulse Rate 83 Pulse Rate [Apical] Pulse Rhythm [Apical] Pulse Strength [Apical] Respiratory Rate Respiratory Effort / Characteristics Respiratory Depth Blood Pressure Blood Pressure [Left Arm] Blood Pressure Mean Blood Pressure Mean [Left Arm] Pulse Oximetry Oxygen Delivery Method Sepsis Recent Fever Within 48 Hours Sepsis New/Unexplained Change in Mental Status Sepsis Action Taken by Nursing CONSTITUTIONAL: Healthy and well nourished. Patient appears in moderate discomfort HEENT: No scleral icterus or conjunctival injection/pallor. Mucous membranes are dry. RESPIRATORY: Clear to auscultation bilaterally with no wheezing, crackles, rhonchi or stridor. CARDIOVASCULAR: Regular rate and rhythm with no murmurs, rubs or gallops. GASTROINTESTINAL: Bowel sounds present in all quadrants. Patient has diffuse abdominal tenderness to palpation. Patient has a palpable right inguinal mass. Negative CVA tenderness. MUSCULOSKELETAL: Full range of motion of all joints without discomfort. INTEGUMENTARY: No rash or other significant dermatologic conditions noted. HEMATOLOGIC: No ecchymosis or petechiae. PSYCHIATRIC: Flat affect. NEUROLOGIC: No focal neurologic deficits noted. Course Course Patient history and physical exam were performed. Nurses notes were reviewed. I did review prior outside medical records, showing that the patient was admitted to our facility 2.5 months ago with incarcerated right inguinal hernia, resulting in a small bowel obstruction. She was seen by Dr. Ayala, general surgeon on-call, who reduced her hernia in the emergency department. She was brought in for observation with no recurrent obstruction. As indicated in the HPI section, the patient reports that she was trying to wait until December to undergo elective inguinal hernia repair, but has had several recurrent incidences of pain, nausea and vomiting since her last admission. IV access was established, and labs were drawn and reviewed showing a white count of over 14,000 with neutrophilic shift and no bandemia. Patient also has an elevated creatinine of 1.59. The patient was hydrated with a liter normal saline, and administered IV morphine and Zofran for pain. CT with IV contrast of the abdomen and pelvis shows evidence for a recurrent small bowel obstruction secondary to right inguinal hernia. The patient was placed in Trendelenburg position, and ice was applied to the region. I recommended attempting to reduce the hernia, however the patient reports that she would prefer to have it done again under conscious sedation, which was performed the last time she had the hernia. I did discuss the case with Dr. Reynoso, ED attending physician, who recommended reaching out to Dr. Eagle, general surgeon on-call. Dr. Eagle did come to the emergency department, and after discussing treatment options with the patient, has elected operative hernia repair. Please see Dr. Eagle's dictation for further treatment and final disposition. Administered Medications Discontinued Medications Sodium Chloride (Nss) 1,000 mls @ 999 mls/hr IV .Q1H1M STA Stop: 09/28/23 00:49 Last Admin: 09/28/23 00:28 Dose: 999 mls/hr Documented By: FIDE Ioversol (Optiray 320 500ml) 89 ml IV ONCE ONE Stop: 09/28/23 00:39 Last Admin: 09/28/23 00:38 Dose: 89 ml Documented By: ADONIS Morphine Sulfate (Morphine Sulfate 4 Mg/Ml 1 Ml Carp\Vial) 4 mg IV NOW STA Stop: 09/27/23 23:59 Last Admin: 09/28/23 00:28 Dose: 4 mg Documented By: FIDE Ondansetron HCl (Ondansetron Inj 2 Mg/Ml 2 Ml Vial) 4 mg IV NOW STA Stop: 09/27/23 23:59 Last Admin: 09/28/23 00:28 Dose: 4 mg Documented By: FIDE Medical Decision Making Medical Records Attestation: I reviewed the patient's medical records. Home Medications was personally reviewed by me Laboratory Data Attestation: I reviewed the patient's lab results. 09/28/23 00:10 09/28/23 00:10 Lab Results 09/28/23 09/28/23 09/28/23 Range/Units 00:10 00:17 00:25 WBC 14.09 H (4.8-10.8) K/ul RBC 5.30 (4.20-5.40) M/uL Hgb 16.3 H (12.0-16.0) g/dl POC Hgb 17.0 H (12.0-16.0) g/dl Hct 47.1 H (37.0-47.0) % POC Hct 50 H (37-47) % MCV 88.9 (80.0-100.0) fL MCH 30.8 (25.0-34.0) pg MCHC 34.6 (32.0-36.0) g/dL RDW Std Deviation 42.6 (36.4-46.3) fL RDW Coeff of Oren 13.0 (11.5-14.5) % Plt Count 428 H (130-400) K/uL MPV 9.1 L (9.4-12.4) fL Immature Gran % (Auto) 0.4 % Neut % (Auto) 74.8 % Lymph % (Auto) 14.3 % [place] % (Auto) 9.2 % Eos % (Auto) 0.8 % Baso % (Auto) 0.5 % Neut # (Auto) 10.53 H (1.40-6.50) K/uL Lymph # (Auto) 2.02 (1.20-3.40) K/uL [place] # (Auto) 1.30 H (0.11-0.59) K/uL Eos # (Auto) 0.11 (0.00-0.50) K/uL Baso # (Auto) 0.07 (0.00-0.20) K/uL Immature Gran # (Auto) 0.06 (0.01-0.20) K/uL POC Sodium 135 (135-144) mmol/L Sodium 135 L (136-145) mmol/L POC Potassium 4.2 (3.3-5.0) mmol/L Potassium 4.2 (3.5-5.1) mmol/L POC Chloride 102 (101-112) mmol/L Chloride 101 (98-107) mmol/L Carbon Dioxide 21 (21-32) mmol/L POC Total CO2 19 L (24-31) mmol/L Anion Gap 13 H (3-11) POC Anion Gap 19.0 (16-25) mmol/L POC BUN 30 H (7-18) mg/dl BUN 30 H (6-23) mg/dl Creatinine 1.59 H (0.6-1.2) mg/dl POC Creatinine 1.6 H (0.6-1.3) mg/dl Est Cr Clr Drug Dosing 30.3 ml/min Est GFR ( Amer) 40.8 ml/min Est GFR (Non-Af Amer) 35.2 ml/min BUN/Creatinine Ratio 18.9 (10-20) Glucose 105 H (70-99(Fasting)) mg/dl POC Glucose (other) 107 H (70-99) mg/dl Lactate 1.4 (0.4-2.0) mmol/L Calcium 9.7 (8.6-10.3) mg/dl POC Ioniz Calcium Josr 1.17 (1.12-1.32) mmol/l Total Bilirubin 0.8 (0.2-1.0) mg/dl AST 18 (13-39) U/L ALT 11 (7-52) U/L Alkaline Phosphatase 63 (34-104) U/L Total Protein 7.2 (6.0-8.3) gm/dl Albumin 4.3 (3.4-5.0) gm/dl Globulin 2.9 (2.5-4.0) gm/dl Albumin/Globulin Ratio 1.5 (0.9-2) Lipase 9 L (11-82) U/L Urine Color Dark Yellow Urine Appearance Cloudy A (Clear) Urine pH 5.0 (4.5-7.5) Ur Specific [place] 1.021 (1.000-1.030) Urine Protein 1+ H (Negative) Urine Glucose (UA) Negative (Negative) Urine Ketones 2+ H (Negative) Urine Blood Trace H (Negative) Urine Nitrite Negative (Negative) Urine Bilirubin Negative (Negative) Urine Urobilinogen Negative (Negative) Ur Leukocyte Esterase Negative (Negative) Urine WBC (Auto) 1-5 (0-5) /hpf Urine RBC (Auto) 0-4 (0-4) /hpf U Hyaline Cast (Auto) 5-10 H (0-5) /lpf U Epithel Cells (Auto) >30 H (0-5) /lpf Urine Bacteria (Auto) Negative (Negative) Imaging Data Attestation: I personally reviewed and interpreted this imaging study as follows: My Impression: My interpretation of the CT with IV contrast of the abdomen and pelvis shows evidence for a small bowel obstruction secondary to a right inguinal hernia. Moderate free pelvic fluid is also noted, without evidence for abdominal free air. Radiologist's Impression: Abdomen/Pelvis CT 12/24/23 23:49 Exam(s): CT ABDOMEN + PELVIS With Contrast IV Amt: 89 ml opti 320 EXAM: CT Abdomen and Pelvis With Intravenous Contrast CLINICAL HISTORY: Incarcerated right inguinal hernia. TECHNIQUE: Axial computed tomography images of the abdomen and pelvis with intravenous contrast. CTDI is 7.58 mGy and DLP is 339.46 mGy-cm. Automated exposure control was utilized for the study. A dose lowering technique was utilized adhering to the principles of ALARA. CONTRAST: Patient received 89 ml opti 320 of IV contrast COMPARISON: CT abdomen and pelvis 07/21/2023 FINDINGS: Lung bases: Unremarkable. No mass. No consolidation. ABDOMEN: Liver: Unremarkable. No mass. Gallbladder and bile ducts: Unremarkable. No calcified stones. No ductal dilation. Pancreas: Unremarkable. No mass. No ductal dilation. Spleen: Unremarkable. No splenomegaly. Adrenals: Unremarkable. No mass. Kidneys and ureters: Simple pain left renal cyst, no follow-up is needed. The kidneys are otherwise unremarkable. No hydronephrosis. Stomach and bowel: Small bowel obstruction secondary to a right inguinal hernia. No mucosal thickening. PELVIS: Appendix: Normal appendix. Bladder: Thickening of the urinary bladder wall could relate to nondistention or cystitis. Reproductive: Unremarkable as visualized. ABDOMEN and PELVIS: Intraperitoneal space: There is moderate free fluid in the pelvis is nonspecific. No free air. Bones/joints: No acute fracture. No dislocation. Soft tissues: See above. Vasculature: Mild atherosclerosis. No abdominal aortic aneurysm. Lymph nodes: Unremarkable. No enlarged lymph nodes. IMPRESSION: 1. Small bowel obstruction secondary to a right inguinal hernia. 2. Thickening of the urinary bladder wall could relate to nondistention or cystitis. 3. There is moderate free fluid in the pelvis is nonspecific. Electronically signed by: Sweta Crystal MD 09/28/23 00:59 AM MDM Narrative See ED Course section for further details of today's visit. The patient presents with complaint of episodic lower abdominal pain for the past 2.5 months after being admitted to our facility with a known incarcerated right inguinal hernia, resulting in a small bowel obstruction on her last ED visit. Patient has had several episodes of similar pain since her last admission. She has not had a bowel movement in the last 3 days. Review of labs today shows a moderate leukocytosis with a bumped creatinine. CT with IV contrast shows evidence for small bowel obstruction secondary to another incarcerated right inguinal hernia. The case was discussed with my attending physician, as well as Dr. Eagle, general surgeon on-call. The patient will be taken to the OR for further surgical management. Please see Dr. Moon's dictation for further treatment and final disposition. Impression Inguinal hernia of right side with obstruction Discharge Plan Visit Data Chief Complaint: Abdominal Pain Stated Complaint: ABD PAIN ED Provider: Roxana Reynoso ED Midlevel Provider: Quinten Pearson Discharge Problem: Inguinal hernia of right side with obstruction Forms Stand Alone Forms: My [facility] Prescriptions Prescriptions: No Action Trelegy Ellipta 100-62.5-25 mcg blister with device 1 inh INHALATION QAM Referrals Referrals: Jordan Garcia DO [Physician] -
[2023-09-28 00:28] LABS: Basophils # (auto) 0.07 K/uL (0.00-0.20); Basophils % (auto) 0.5 %; Eosinophils # (auto) 0.11 K/uL (0.00-0.50); Eosinophils % (auto) 0.8 %; Hematocrit (blood only) 47.1 % (37.0-47.0); Hemoglobin 16.3 g/dl (12.0-16.0); Immature Granulocytes # (auto) 0.06 K/uL (0.01-0.20); Immature Granulocytes % (auto) 0.4 %; Lymphocytes # (auto) 2.02 K/uL (1.20-3.40); Lymphocytes % (auto) 14.3 %; Mean Corpuscular Hemoglobin 30.8 pg (25.0-34.0); Mean Corpuscular Hgb Conc 34.6 g/dL (32.0-36.0); Mean Corpuscular Volume 88.9 fL (80.0-100.0); Mean Platelet Volume 9.1 fL (9.4-12.4); Monocytes % (auto) 9.2 %; Neutrophils # (auto) 10.53 K/uL (1.40-6.50); Neutrophils % (auto) 74.8 %; Platelet Count 428 K/uL (130-400); RDW Standard Deviation 42.6 fL (36.4-46.3); White Blood Count 14.09 K/ul (4.8-10.8)
[2023-09-28 00:30] LABS: iSTAT Creatinine 1.6 mg/dl (0.6-1.3); iSTAT Ionized Calcium 1.17 mmol/l (1.12-1.32); iSTAT Potassium 4.2 mmol/L (3.3-5.0)
[2023-09-28] MEDS ORDERED: OPTIRAY 320 500ml IV ONE (00:38)
[2023-09-28 00:45] LABS: Albumin Globulin Ratio 1.5 (0.9-2); Albumin Level 4.3 gm/dl (3.4-5.0); BUN Creatinine Ratio 18.9 (10-20); Bilirubin,Total 0.8 mg/dl (0.2-1.0); Calcium 9.7 mg/dl (8.6-10.3); Creatinine Clr Calc Pharmacy 30.3 ml/min; Est GFR (African American) 40.8 ml/min; Est GFR (Non-African American) 35.2 ml/min; Globulin 2.9 gm/dl (2.5-4.0); Potassium 4.2 mmol/L (3.5-5.1); Total Protein 7.2 gm/dl (6.0-8.3)
[2023-09-28 00:47] LABS: Appearance Urine Cloudy (Clear); Bacteria Urine Automated Negative (Negative); Bilirubin Urine Negative (Negative); Blood Urine Trace (Negative); Color Urine Dark Yellow; Epithelial Cell Urine Auto >30 /lpf (0-5); Glucose Urine UA Negative (Negative); Ketones Urine 2+ (Negative); Leukocyte Esterase Urine Negative (Negative); Nitrite Urine Negative (Negative); Protein Urine 1+ (Negative); RBC Urine Automated 0-4 /hpf (0-4); Specific Gravity Urine 1.021 (1.000-1.030); Urobilinogen Urine Negative (Negative)
--- NOTE | 2023-09-28 01:00 | CT Scan Report ---
Exam(s): CT ABDOMEN + PELVIS With Contrast IV Amt: 89 ml opti 320 EXAM: CT Abdomen and Pelvis With Intravenous Contrast CLINICAL HISTORY: Incarcerated right inguinal hernia. TECHNIQUE: Axial computed tomography images of the abdomen and pelvis with intravenous contrast. CTDI is 7.58 mGy and DLP is 339.46 mGy-cm. Automated exposure control was utilized for the study. A dose lowering technique was utilized adhering to the principles of ALARA. CONTRAST: Patient received 89 ml opti 320 of IV contrast COMPARISON: CT abdomen and pelvis 07/21/2023 FINDINGS: Lung bases: Unremarkable. No mass. No consolidation. ABDOMEN: Liver: Unremarkable. No mass. Gallbladder and bile ducts: Unremarkable. No calcified stones. No ductal dilation. Pancreas: Unremarkable. No mass. No ductal dilation. Spleen: Unremarkable. No splenomegaly. Adrenals: Unremarkable. No mass. Kidneys and ureters: Simple pain left renal cyst, no follow-up is needed. The kidneys are otherwise unremarkable. No hydronephrosis. Stomach and bowel: Small bowel obstruction secondary to a right inguinal hernia. No mucosal thickening. PELVIS: Appendix: Normal appendix. Bladder: Thickening of the urinary bladder wall could relate to nondistention or cystitis. Reproductive: Unremarkable as visualized. ABDOMEN and PELVIS: Intraperitoneal space: There is moderate free fluid in the pelvis is nonspecific. No free air. Bones/joints: No acute fracture. No dislocation. Soft tissues: See above. Vasculature: Mild atherosclerosis. No abdominal aortic aneurysm. Lymph nodes: Unremarkable. No enlarged lymph nodes. IMPRESSION: 1. Small bowel obstruction secondary to a right inguinal hernia. 2. Thickening of the urinary bladder wall could relate to nondistention or cystitis. 3. There is moderate free fluid in the pelvis is nonspecific. Electronically signed by: Sweta Crystal MD 09/28/23 00:59 AM
[2023-09-28] MEDS ORDERED: cefOXitin 2,000 MG/60 ML BAG IV STA (02:26)
--- NOTE | 2023-09-28 02:42 | Surgery Consultation ---
Date of Consultation September 28, 2023 Assessment & Plan (1) Incarcerated right inguinal hernia: Assessment: Patient is 58 years old female who presented to ED with a 3-day history right inguinal pain with a bulging nausea and vomiting. The bulging is not reducible. Patient had a CT scan diagnosis small bowel obstruction secondary to right inguinal hernia. I reviewed the CT. WBC 14,000. CR 1.5 Plan: Based on the patient history physical exam labs and the CT scan finding. I recommend to do open repair right inguinal hernia possible mesh possible exploratory laparotomy possible bowel resection and stoma. I did talk to patient about the benefit the risk and alternate of the procedure I indicated the risks may include but not limited such as bleeding infection hernia recurrence chronic pain complication related to mesh and the anastomotic leak. Patient and the patient's son understand. They are agreed to proceed the surgery. Patient signed informed consent. I answered all questions. pre-op IV antibiotic. (2) SBO (small bowel obstruction): see above History of Present Illness Reason for Consultation: Incarcerated right inguinal hernia Requesting Physician: Roxana Sr History of Present Illness CC: Right groin pain with nausea and vomiting HPI: Patient is a 58 years old female who presented to ED with 3 to 4 days history right inguinal pain with nausea and vomiting and bulging on right groin area, bulging is not reducible. the pain is about 8/10. Patient denies fever or chills. No dysuria . No chest pain. last bowel movement 3 days ago. Patient said she had right inguinal hernia on last over 5 years. patient was admitted to the hospital for the similar symptom a couple months ago. At that time the hernia was reducible. Patient to follow-up her surgeon schedule repair hernia in December 2023. Patient had a CT scan in the ED today which diagnosis small bowel obstruction secondary to right inguinal hernia. Allergies Allergy/AdvReac Type Severity Reaction Status Date / Time No Known Allergies Allergy Verified 09/28/23 00:31 Home Medications Medication Instructions Recorded Confirmed Type fluticasone fur. 100 mcg-umeclid 1 inh inhalation QAM 07/22/23 09/28/23 History 62.5 mcg-vilant 25 mcg inhalat.powder (Trelegy Ellipta) Patient History Medical History Tobacco use Surgical History No significant past surgical history Social History Smoking Status: Current every day smoker Tobacco Type: Cigarettes Second Hand Exposure: No; Do You Dip or Chew Tobacco: No; Hx Alcohol Use: No Hx Substance Use: No Preferred Language: Yoruba Communication Ability: Effective Early Education Teacher Required: No Beliefs That Will Affect Care: None Current Living Situation: Family current occupational status: employed current occupation: housekeeping at [employer] Feels Safe at Home: Yes Assistive Devices: None Review of Systems Constitutional: as per Subjective / HPI Eyes: as per Subjective / HPI Respiratory: Smoking 1 pack a day Cardiovascular: as per Subjective / HPI Gastrointestinal: Right inguinal hernia Genitourinary: as per Subjective / HPI Neurologic: as per Subjective / HPI Psychiatric: as per Subjective / HPI Endocrine: as per Subjective / HPI Hematologic / Lymphatic: as per Subjective / HPI Physical Exam Constitutional: WD/WN, vitals as above Mild distress Eyes: PERRL, conjunctivae normal, anicteric sclerae Neck: trachea midline, no thyromegaly Respiratory: normal respiratory effort, lungs clear to auscultation Cardiovascular: RRR, no murmur, no edema Gastrointestinal (Abdomen): a mass on right groin area, tenderness, not reducible, pt was Trendelenburg position for last 2 hours. The right inguinal hernia was not reducible. The abdomen is soft, mild distention, tenderness on the whole abdomen, without rebound pain. BS POSITIVE. Musculoskeletal: no cyanosis or clubbing, extremities motor strength 5/5 Neurologic: patellar DTR's 2+ bilat, sensation intact Psychiatric: A+Ox3, euthymic affect Results & Data Vital Signs (Past 12 Hours) Vital Signs Temp Pulse Pulse Resp BP BP Pulse Ox 09/28/23 02:00 88 23 125/76 98 09/28/23 01:31 83 09/28/23 01:30 82 20 121/79 100 09/28/23 01:25 83 15 98 09/28/23 00:53 81 16 144/76 H 96 09/27/23 23:34 36.7 C 121 H 18 102/76 96 O2 Del Method 09/28/23 02:00 09/28/23 01:31 09/28/23 01:30 09/28/23 01:25 09/28/23 00:53 Room Air 09/27/23 23:34 Room Air Laboratory Results Lab Results 09/28/23 09/28/23 09/28/23 Range/Units 00:10 00:17 00:25 WBC 14.09 H (4.8-10.8) K/ul RBC 5.30 (4.20-5.40) M/uL Hgb 16.3 H (12.0-16.0) g/dl POC Hgb 17.0 H (12.0-16.0) g/dl Hct 47.1 H (37.0-47.0) % POC Hct 50 H (37-47) % MCV 88.9 (80.0-100.0) fL MCH 30.8 (25.0-34.0) pg MCHC 34.6 (32.0-36.0) g/dL RDW Std Deviation 42.6 (36.4-46.3) fL RDW Coeff of Oren 13.0 (11.5-14.5) % Plt Count 428 H (130-400) K/uL MPV 9.1 L (9.4-12.4) fL Immature Gran % (Auto) 0.4 % Neut % (Auto) 74.8 % Lymph % (Auto) 14.3 % Winn % (Auto) 9.2 % Eos % (Auto) 0.8 % Baso % (Auto) 0.5 % Neut # (Auto) 10.53 H (1.40-6.50) K/uL Lymph # (Auto) 2.02 (1.20-3.40) K/uL Winn # (Auto) 1.30 H (0.11-0.59) K/uL Eos # (Auto) 0.11 (0.00-0.50) K/uL Baso # (Auto) 0.07 (0.00-0.20) K/uL Immature Gran # (Auto) 0.06 (0.01-0.20) K/uL POC Sodium 135 (135-144) mmol/L Sodium 135 L (136-145) mmol/L POC Potassium 4.2 (3.3-5.0) mmol/L Potassium 4.2 (3.5-5.1) mmol/L POC Chloride 102 (101-112) mmol/L Chloride 101 (98-107) mmol/L Carbon Dioxide 21 (21-32) mmol/L POC Total CO2 19 L (24-31) mmol/L Anion Gap 13 H (3-11) POC Anion Gap 19.0 (16-25) mmol/L POC BUN 30 H (7-18) mg/dl BUN 30 H (6-23) mg/dl Creatinine 1.59 H (0.6-1.2) mg/dl POC Creatinine 1.6 H (0.6-1.3) mg/dl Est Cr Clr Drug Dosing 30.3 ml/min Est GFR ( Amer) 40.8 ml/min Est GFR (Non-Af Amer) 35.2 ml/min BUN/Creatinine Ratio 18.9 (10-20) Glucose 105 H (70-99(Fasting)) mg/dl POC Glucose (other) 107 H (70-99) mg/dl Lactate 1.4 (0.4-2.0) mmol/L Calcium 9.7 (8.6-10.3) mg/dl POC Ioniz Calcium Josr 1.17 (1.12-1.32) mmol/l Total Bilirubin 0.8 (0.2-1.0) mg/dl AST 18 (13-39) U/L ALT 11 (7-52) U/L Alkaline Phosphatase 63 (34-104) U/L Total Protein 7.2 (6.0-8.3) gm/dl Albumin 4.3 (3.4-5.0) gm/dl Globulin 2.9 (2.5-4.0) gm/dl Albumin/Globulin Ratio 1.5 (0.9-2) Lipase 9 L (11-82) U/L Urine Color Dark Yellow Urine Appearance Cloudy A (Clear) Urine pH 5.0 (4.5-7.5) Ur Specific [place] 1.021 (1.000-1.030) Urine Protein 1+ H (Negative) Urine Glucose (UA) Negative (Negative) Urine Ketones 2+ H (Negative) Urine Blood Trace H (Negative) Urine Nitrite Negative (Negative) Urine Bilirubin Negative (Negative) Urine Urobilinogen Negative (Negative) Ur Leukocyte Esterase Negative (Negative) Urine WBC (Auto) 1-5 (0-5) /hpf Urine RBC (Auto) 0-4 (0-4) /hpf U Hyaline Cast (Auto) 5-10 H (0-5) /lpf U Epithel Cells (Auto) >30 H (0-5) /lpf Urine Bacteria (Auto) Negative (Negative) Diagnostic Findings Exam(s): CT ABDOMEN + PELVIS With Contrast IV Amt: 89 ml opti 320 EXAM: CT Abdomen and Pelvis With Intravenous Contrast CLINICAL HISTORY: Incarcerated right inguinal hernia. TECHNIQUE: Axial computed tomography images of the abdomen and pelvis with intravenous contrast. CTDI is 7.58 mGy and DLP is 339.46 mGy-cm. Automated exposure control was utilized for the study. A dose lowering technique was utilized adhering to the principles of ALARA. CONTRAST: Patient received 89 ml opti 320 of IV contrast COMPARISON: CT abdomen and pelvis 07/21/2023 FINDINGS: Lung bases: Unremarkable. No mass. No consolidation. ABDOMEN: Liver: Unremarkable. No mass. Gallbladder and bile ducts: Unremarkable. No calcified stones. No ductal dilation. Pancreas: Unremarkable. No mass. No ductal dilation. Spleen: Unremarkable. No splenomegaly. Adrenals: Unremarkable. No mass. Kidneys and ureters: Simple pain left renal cyst, no follow-up is needed. The kidneys are otherwise unremarkable. No hydronephrosis. Stomach and bowel: Small bowel obstruction secondary to a right inguinal hernia. No mucosal thickening. PELVIS: Appendix: Normal appendix. Bladder: Thickening of the urinary bladder wall could relate to nondistention or cystitis. Reproductive: Unremarkable as visualized. ABDOMEN and PELVIS: Intraperitoneal space: There is moderate free fluid in the pelvis is nonspecific. No free air. Bones/joints: No acute fracture. No dislocation. Soft tissues: See above. Vasculature: Mild atherosclerosis. No abdominal aortic aneurysm. Lymph nodes: Unremarkable. No enlarged lymph nodes. IMPRESSION: 1. Small bowel obstruction secondary to a right inguinal hernia. 2. Thickening of the urinary bladder wall could relate to nondistention or cystitis. 3. There is moderate free fluid in the pelvis is nonspecific. Electronically signed by: Sweta Crystal MD 09/28/23 00:59 AM Dictated: 09/28/2358 Transcribed: 09/28/2358
--- NOTE | 2023-09-28 02:47 | History & Physical Bridge Note ---
Date of Service September 28, 2023 History & Physical Bridge Note I have examined the patient, reviewed the History & Physical and in the interval since the performance of the History & Physical I have noted the following changes of clinical significance: no changes noted
--- NOTE | 2023-09-28 02:49 | Anesthesiology Consultation ---
Date of Service September 28, 2023 Assessment & Plan Chart Review Chart Review: Acceptable Risk for Surgery Consults Requested none History Surgery Operation Date: 09/28/23 03:30 Proposed Procedures p Inguinal Hernia Repair(Right) - Pavan Eagle MD Height/Weight Height: 5 ft 4 in Weight: 50.4 kg Allergies Allergy/AdvReac Type Severity Reaction Status Date / Time No Known Allergies Allergy Verified 09/28/23 00:31 Medications Home Medications Medication Instructions Recorded Confirmed Last Taken fluticasone fur. 100 mcg-umeclid 1 inh inhalation QAM 07/22/23 09/28/23 09/27/23 62.5 mcg-vilant 25 mcg inhalat.powder (Trelegy Ellipta) Active Medications Generic Name Dose Route Start Last Admin Trade Name Freq PRN Reason Stop Dose Admin Cefoxitin Sodium 2,000 mg in 60 mls @ 100 mls/hr 09/28/23 02:26 09/28/23 02:41 Mefoxin IV 09/28/23 03:01 100 mls/hr NOW STA Administration Protocol Past Medical History Medical History Tobacco use Past Surgical History Surgical History No significant past surgical history Social History Smoking Status: Current every day smoker Do You Dip or Chew Tobacco: No Hx Alcohol Use: No Hx Substance Use: No substance use type: does not use Review of Systems Constitutional: as per Subjective / HPI Eyes: as per Subjective / HPI Cardiovascular: as per Subjective / HPI Genitourinary (Female): as per Subjective / HPI Neurologic: as per Subjective / HPI Psychiatric: as per Subjective / HPI Endocrine: as per Subjective / HPI Hematologic / Lymphatic: as per Subjective / HPI Physical Exam Vital Signs Last Vital Signs Temp 36.7 C 09/27/23 23:34 Pulse 88 09/28/23 02:00 Resp 23 09/28/23 02:00 BP 125/76 09/28/23 02:00 Pulse Ox 98 09/28/23 02:00 O2 Del Method Room Air 09/28/23 00:53 Constitutional WD/WN, vitals as above Eyes PERRL, conjunctivae normal, anicteric sclerae Neck trachea midline, no thyromegaly Respiratory normal respiratory effort, lungs clear to auscultation Cardiovascular RRR, no murmur, no edema Musculoskeletal no cyanosis or clubbing, extremities motor strength 5/5 Neurologic patellar DTR's 2+ bilat, sensation intact Psychiatric A+Ox3, euthymic affect Testing Laboratory Results 09/28/23 00:10 09/28/23 00:10 Urine Color Dark Yellow 09/28/23 00:25 Urine Appearance Cloudy (Clear) A 09/28/23 00:25 Urine pH 5.0 (4.5-7.5) 09/28/23 00:25 Ur Specific [place] 1.021 (1.000-1.030) 09/28/23 00:25 Urine Protein 1+ (Negative) H 09/28/23 00:25 Urine Glucose (UA) Negative (Negative) 09/28/23 00:25 Urine Ketones 2+ (Negative) H 09/28/23 00:25 Urine Nitrite Negative (Negative) 09/28/23 00:25 Ur Leukocyte Esterase Negative (Negative) 09/28/23 00:25 Urine WBC (Auto) 1-5 /hpf (0-5) 09/28/23 00:25 Urine RBC (Auto) 0-4 /hpf (0-4) 09/28/23 00:25 U Hyaline Cast (Auto) 5-10 /lpf (0-5) H 09/28/23 00:25 U Epithel Cells (Auto) >30 /lpf (0-5) H 09/28/23 00:25 Urine Bacteria (Auto) Negative (Negative) 09/28/23 00:25 09/28/23 00:17 POC Glucose (other) 107 H
[2023-09-28] MEDS ORDERED: LIDOCAINE 2% 2 ML VIAL/AMP(20MG/ML) INFIL ONE (02:52)
[2023-09-28] MEDS ORDERED: ONDANSETRON INJ 2 MG/ML 2 ML VIAL ONE (02:52)
[2023-09-28] MEDS ORDERED: DEXAMETHASONE SOD INJ 4 MG/ML VIAL ONE (02:52)
[2023-09-28] MEDS ORDERED: PROPOFOL IV EMULSION 10 MG/ML 20 ML VIAL IV ONE (02:52)
[2023-09-28] MEDS ORDERED: SUCCINYLCHOLINE CHLORIDE 20 MG/ML 10 ML VIAL IV ONE (02:52)
[2023-09-28] MEDS ORDERED: BUPIVACAINE 0.5 % 5 MG/1 ML MPF 30ML VIAL ONE (02:53)
[2023-09-28] MEDS ORDERED: BACITRACIN OINT 14 GM TUBE ONE (02:53)
[2023-09-28] MEDS ORDERED: LIDOCAINE 1% LOCAL 20 ML VIAL ONE (02:53)
[2023-09-28] MEDS ORDERED: ROCURONIUM BROMIDE 10 MG/ML 5 ML VIAL IV ONE (02:55)
[2023-09-28] MEDS ORDERED: fentaNYL citrate PF 100 MCG/2 ML VIAL ONE ×2 (02:56→04:29)
[2023-09-28] MEDS ORDERED: MIDAZOLAM HCL 1 MG/ML 2ML VIAL ONE (02:56)
[2023-09-28] MEDS ORDERED: PHENYLEPHRINE HCL 10 MG/ML VIAL ONE (02:57)
[2023-09-28] MEDS ORDERED: ARTIFICIAL TEARS OP OINT 3.5 GM TUBE ONE (03:02)
[2023-09-28] MEDS ORDERED: ATROPINE SULFATE 0.1 MG/ML 10ML SYR IV PRN (03:13)
[2023-09-28] MEDS ORDERED: fentaNYL citrate PF 100 MCG/2 ML VIAL IV PRN (03:13)
[2023-09-28] MEDS ORDERED: ONDANSETRON INJ 2 MG/ML 2 ML VIAL IV PRN (03:13)
[2023-09-28] MEDS ORDERED: ePHEDrine sulfate 50 MG/ML AMP IV PRN (03:13)
[2023-09-28] MEDS ORDERED: ePHEDrine sulfate 50 MG/ML AMP ONE (03:58)
[2023-09-28] MEDS ORDERED: SUGAMMADEX SODIUM 200 MG/2 ML VIAL IV ONE (04:19)
--- NOTE | 2023-09-28 04:37 | Post Operative Brief Note ---
Immediate Post Op Note v1 Date of Surgery September 28, 2023 Pre & Post Diagnosis Operation Date: 09/28/23 03:30 Pre-Op Diagnosis: Right Incarcerated Inguinal Hernia Post-Op Diagnosis: Right Incarcerated Inguinal Hernia I identified the patient and participated in the time-out.: Yes Procedure Operation Date: 09/28/23 03:30 Actual Procedures OPEN REPAIR Right Inguinal Hernia (Right) - Pavan Eagle MD Surgeon Pavan Eagle MD Cable Supervisor CRITICAL SYSTEMS TECHNICIAN Estimated Blood Loss 10 Findings Consistent with Post-Op Diagnosis INCARCERATED RIGHT INGUINAL HERNIA, INFLAMMATION AROUND RIGHT INGUINAL AREA Fluids 700ml Specimens hernia sac Drains Gonzalez Catheter Anesthesia Type General Complications none Disposition Accompanied Patient To Recovery: Yes
--- NOTE | 2023-09-28 05:02 | Anesthesiology Progress Note ---
Date of Service September 28, 2023 Anesthesia Post Procedure Vital Signs Vital Signs: Temp Pulse Pulse Resp BP BP Pulse Ox 09/28/23 02:00 88 23 125/76 98 09/28/23 01:31 83 09/28/23 01:30 82 20 121/79 100 09/28/23 01:25 83 15 98 09/28/23 00:53 81 16 144/76 H 96 09/27/23 23:34 36.7 C 121 H 18 102/76 96 O2 Del Method 09/28/23 02:00 09/28/23 01:31 09/28/23 01:30 09/28/23 01:25 09/28/23 00:53 Room Air 09/27/23 23:34 Room Air Pain Intensity Abdomen: Pain Intensity: 8 Transfer of Care Handoff Completed per policy Notes Mental Status: alert / awake / arousable Patient Amnestic to Procedure: Yes Nausea / Vomiting: adequately controlled Pain: adequately controlled Airway Patency, RR, SpO2: stable & adequate BP & HR: stable & adequate Hydration State: stable & adequate Anesthetic Complications: no major complications apparent and Pt Satisfied with anesthetic care
[2023-09-28] MEDS ORDERED: HYDROmorphone INJ 0.5 MG/0.5 ML SYR IV PRN (06:08)
[2023-09-28] MEDS ORDERED: POLYETHYLENE (MIRALAX) 17 GM PACK PO PRN (06:08)
[2023-09-28] MEDS: LACTATED RINGER'S 1,000 ML IV SCH ×2 (06:25→19:28)
[2023-09-28 06:51] LABS: Basophils # (auto) 0.03 K/uL (0.00-0.20); Basophils % (auto) 0.3 %; Eosinophils # (auto) 0.01 K/uL (0.00-0.50); Eosinophils % (auto) 0.1 %; Hematocrit (blood only) 38.9 % (37.0-47.0); Hemoglobin 13.6 g/dl (12.0-16.0); Immature Granulocytes # (auto) 0.04 K/uL (0.01-0.20); Immature Granulocytes % (auto) 0.3 %; Lymphocytes # (auto) 0.91 K/uL (1.20-3.40); Lymphocytes % (auto) 7.7 %; Mean Corpuscular Hemoglobin 31.2 pg (25.0-34.0); Mean Corpuscular Volume 89.2 fL (80.0-100.0); Mean Platelet Volume 8.9 fL (9.4-12.4); Monocytes # (auto) 0.28 K/uL (0.11-0.59); Monocytes % (auto) 2.4 %; Neutrophils # (auto) 10.54 K/uL (1.40-6.50); Neutrophils % (auto) 89.2 %; Platelet Count 308 K/uL (130-400); RDW Coefficient of Variation 13.1 % (11.5-14.5); Red Blood Count 4.36 M/uL (4.20-5.40); White Blood Count 11.81 K/ul (4.8-10.8)
[2023-09-28 07:03] LABS: Albumin Globulin Ratio 1.6 (0.9-2); Albumin Level 3.6 gm/dl (3.4-5.0); Bilirubin,Total 0.6 mg/dl (0.2-1.0); Calcium 8.3 mg/dl (8.6-10.3); Creatinine Clr Calc Pharmacy 39.2 ml/min; Est GFR (African American) 55.6 ml/min; Globulin 2.3 gm/dl (2.5-4.0); Potassium 4.1 mmol/L (3.5-5.1); Total Protein 5.9 gm/dl (6.0-8.3)
[2023-09-28] MEDS: cefOXitin 1,000 MG in DEXTROSE 5 % MINI-B 50 ML IV SCH ×3 (08:34→19:29)
[2023-09-28] MEDS: FLUTICASONE FUROATE 100MCG 14 PUFFS/INHALER INH SCH (08:37)
[2023-09-28] MEDS: UMECLIDINIUM/VILANTEROL 62.5/25MCG 7 PUFFS/INHALER INH SCH (08:38)
[2023-09-28] MEDS ORDERED: NON-FORMULARY MEDICATION (Fluticasone-Umeclidin-Vilanter [Trelegy Ellipta] 100-62.5-25 mcg INH SCH (09:00)
--- NOTE | 2023-09-28 10:39 | Operative Report ---
Post Operative Report Pre & Post Diagnosis Operation Date: 09/28/23 03:30 Pre-Op Diagnosis: Right Incarcerated Inguinal Hernia Post-Op Diagnosis: Right Incarcerated Inguinal Hernia I identified the patient and participated in the time-out.: Yes Procedure Operation Date: 09/28/23 03:30 Actual Procedures open repair Right Inguinal Hernia (Right) - Pavan Eagle MD Surgeon Pavan Eagle MD Firearms Specialist HOME HEALTH ATTENDANT Estimated Blood Loss 10 Findings Consistent with Post-Op Diagnosis incarcerated right inguinal hernia, hernia sac contain small bowel. Fluids 700ml Specimens hernia sac Drains none Anesthesia Type General Complications none Disposition Accompanied Patient To Recovery: Yes Indications Patient is a 58 years old female presented to ED with a 3-day history of right groin pain with bulging and nausea and vomiting. Patient had a CT scan diagnosis of small bowel obstruction secondary to right inguinal hernia. Clinically the bulging hernia is not a reducible. I recommend to do open repair right inguinal hernia possible mesh, possible exploratory laparotomy, possible bowel resection or stoma. I Did talk to patient about the benefit the risk and alternate of the procedure. I indicated the risks may include but not limited such as a bleeding, infection, hernia recurrence, chronic pain, complication related to mesh, and injury other organs or bowel perforation. Patient understood. she agreed to proceed the procedure. She signed informed consent. I answered all questions. Description of Procedure After we identified patient to verify procedure. we brought patient to the OR and put the patient on the supine position on the OR table. patient received SCD on bilateral legs to prevent DVT also patient received 2 gram cefoxitin IV for prophylactic antibiotic. patient received general anesthesia by the anesthesiologist. the abdomen and pelvic area was propped and dripped in routine fashion. after timeout. I injections of local anesthesia by using 1% lidocaine except 0.5% Marcaine around the right inguinal area. I Make about 4 cm incision on the right inguinal area by using 15 blade. Dissection subcutaneous layer, I found pt has incarcerated right indirect inguinal hernia, the hernia is not reducible, I use a scissor to open the hernia neck. Mobilized the hernia sac, I resection the hernia sac. Send the hernia sac to pathology. Once we open the hernia sac. Containing small bowel return to [place] ( Viable) color from blue-color before. then reaches the external bullae open the external bullae and return small bowl back to abdomen cavity. based on some inf lammation around incarcerated hernia neck and hernia sac and also patient is small lady . Inside the performer close hernia by using #1 Ethibond suture to close the hernia neck interrupted. then I close conjoined tendon to right inguinal ligament by using #1 Ethibond suture interrupted . the hernia close nicely, no tension. Hemostasis obtained. Closed the external bullae by using 2-0 Vicryl continuous running. Close subcutaneous layer using 2-0 Vicryl continuous running. Close skin by using 4-0 Vicryl continuous running. then we put the dressing on. the patient tolerated procedure well. all instrument, needle, sponge count correct x2 at end the case. patient transferred to recovery room in stable condition. after procedure I did talk to patient and his family member about the OR finding procedure we did. I attest to the content of the Intraoperative Record and any orders documented therein. Any exceptions are noted below.
[2023-09-28] MEDS: oxyCODONE/ACETAMINOPHEN 5mg/325mg TAB PO PRN ×2 (17:05→21:01)
[2023-09-29] MEDS: cefOXitin 1,000 MG in DEXTROSE 5 % MINI-B 50 ML IV SCH (02:57)
[2023-09-29] MEDS: oxyCODONE/ACETAMINOPHEN 5mg/325mg TAB PO PRN ×2 (03:00→10:06)
[2023-09-29 06:25] LABS: Basophils # (auto) 0.05 K/uL (0.00-0.20); Basophils % (auto) 0.5 %; Eosinophils # (auto) 0.25 K/uL (0.00-0.50); Eosinophils % (auto) 2.3 %; Hematocrit (blood only) 35.7 % (37.0-47.0); Hemoglobin 11.9 g/dl (12.0-16.0); Immature Granulocytes # (auto) 0.06 K/uL (0.01-0.20); Immature Granulocytes % (auto) 0.5 %; Lymphocytes # (auto) 2.19 K/uL (1.20-3.40); Mean Corpuscular Hemoglobin 30.5 pg (25.0-34.0); Mean Corpuscular Hgb Conc 33.3 g/dL (32.0-36.0); Mean Corpuscular Volume 91.5 fL (80.0-100.0); Mean Platelet Volume 8.9 fL (9.4-12.4); Neutrophils % (auto) 66.7 %; Platelet Count 289 K/uL (130-400); RDW Coefficient of Variation 13.2 % (11.5-14.5); RDW Standard Deviation 44.3 fL (36.4-46.3); White Blood Count 10.95 K/ul (4.8-10.8)
[2023-09-29] MEDS: FLUTICASONE FUROATE 100MCG 14 PUFFS/INHALER INH SCH (08:08)
[2023-09-29] MEDS: UMECLIDINIUM/VILANTEROL 62.5/25MCG 7 PUFFS/INHALER INH SCH (08:09)
[2023-09-29] MEDS: LACTATED RINGER'S 1,000 ML IV SCH (10:03)
--- NOTE | 2023-09-29 11:17 | Surgery Progress Note ---
Date of Service September 29, 2023 Assessment & Plan (1) Incarcerated right inguinal hernia: Plan: Assessment: Patient is 58 years old female who presented to ED with a 3-day history right inguinal pain with a bulging nausea and vomiting. The bulging is not reducible. Patient had a CT scan diagnosis small bowel obstruction secondary to right inguinal hernia. I reviewed the CT. WBC 14,000. CR 1.5 Plan: Based on the patient history physical exam labs and the CT scan finding. I recommend to do open repair right inguinal hernia possible mesh possible exploratory laparotomy possible bowel resection and stoma. I did talk to patient about the benefit the risk and alternate of the procedure I indicated the risks may include but not limited such as bleeding infection hernia recurrence chronic pain complication related to mesh and the anastomotic leak. Patient and the patient's son understand. They are agreed to proceed the surgery. Patient signed informed consent. I answered all questions. pre-op IV antibiotic. 09/29/2023 11: 14 AM F/U S/P repair incarcerated right inguinal hernia, POD 1 pt is doing fine, Patient wants to go home today Gave patient postop care instruction, patient understood, I answered all questions. F/U 2 weeks. (2) SBO (small bowel obstruction): Plan: see above Admission and Anticipated Discharge Date Admission Date: September 28, 2023 Subjective F/U S/P open repair incarcerated right inguinal hernia, POD 1 pt is doing fine, no significant incision pain. tolerated diet, no nausea, no vomiting, passed flatus. no fever. Review of Systems Constitutional: as per Subjective / HPI Eyes: as per Subjective / HPI Respiratory: Smoking 1 pack a day Cardiovascular: as per Subjective / HPI Gastrointestinal: Right inguinal hernia Genitourinary: as per Subjective / HPI Neurologic: as per Subjective / HPI Psychiatric: as per Subjective / HPI Endocrine: as per Subjective / HPI Hematologic / Lymphatic: as per Subjective / HPI Physical Exam Constitutional: WD/WN, vitals as above Eyes: PERRL, conjunctivae normal, anicteric sclerae Neck: trachea midline, no thyromegaly Respiratory: normal respiratory effort, lungs clear to auscultation Cardiovascular: RRR, no murmur, no edema Gastrointestinal (Abdomen): soft, mild tenderness at incision site, no bulging on incision site, the incision intact, no redness, BS +. Musculoskeletal: no cyanosis or clubbing, extremities motor strength 5/5 Neurologic: patellar DTR's 2+ bilat, sensation intact Psychiatric: A+Ox3, euthymic affect Results & Data Vital Signs (Past 12 Hours) Vital Signs Temp Pulse Pulse Resp BP BP Pulse Ox 09/29/23 07:25 36.8 C 70 16 93/61 L 92 09/29/23 01:21 36.5 C 68 18 102/64 92 O2 Del Method 09/29/23 07:25 Room Air 09/29/23 01:21 Room Air Laboratory Results Lab Results 09/28/23 09/28/23 09/28/23 Range/Units 00:10 00:17 00:25 WBC 14.09 H (4.8-10.8) K/ul RBC 5.30 (4.20-5.40) M/uL Hgb 16.3 H (12.0-16.0) g/dl POC Hgb 17.0 H (12.0-16.0) g/dl Hct 47.1 H (37.0-47.0) % POC Hct 50 H (37-47) % MCV 88.9 (80.0-100.0) fL MCH 30.8 (25.0-34.0) pg MCHC 34.6 (32.0-36.0) g/dL RDW Std Deviation 42.6 (36.4-46.3) fL RDW Coeff of Oren 13.0 (11.5-14.5) % Plt Count 428 H (130-400) K/uL MPV 9.1 L (9.4-12.4) fL Immature Gran % (Auto) 0.4 % Neut % (Auto) 74.8 % Lymph % (Auto) 14.3 % [place] % (Auto) 9.2 % Eos % (Auto) 0.8 % Baso % (Auto) 0.5 % Neut # (Auto) 10.53 H (1.40-6.50) K/uL Lymph # (Auto) 2.02 (1.20-3.40) K/uL [place] # (Auto) 1.30 H (0.11-0.59) K/uL Eos # (Auto) 0.11 (0.00-0.50) K/uL Baso # (Auto) 0.07 (0.00-0.20) K/uL Immature Gran # (Auto) 0.06 (0.01-0.20) K/uL POC Sodium 135 (135-144) mmol/L Sodium 135 L (136-145) mmol/L POC Potassium 4.2 (3.3-5.0) mmol/L Potassium 4.2 (3.5-5.1) mmol/L POC Chloride 102 (101-112) mmol/L Chloride 101 (98-107) mmol/L Carbon Dioxide 21 (21-32) mmol/L POC Total CO2 19 L (24-31) mmol/L Anion Gap 13 H (3-11) POC Anion Gap 19.0 (16-25) mmol/L POC BUN 30 H (7-18) mg/dl BUN 30 H (6-23) mg/dl Creatinine 1.59 H (0.6-1.2) mg/dl POC Creatinine 1.6 H (0.6-1.3) mg/dl Est Cr Clr Drug Dosing 30.3 ml/min Est GFR ( Amer) 40.8 ml/min Est GFR (Non-Af Amer) 35.2 ml/min BUN/Creatinine Ratio 18.9 (10-20) Glucose 105 H (70-99(Fasting)) mg/dl POC Glucose (other) 107 H (70-99) mg/dl Lactate 1.4 (0.4-2.0) mmol/L Calcium 9.7 (8.6-10.3) mg/dl POC Ioniz Calcium Josr 1.17 (1.12-1.32) mmol/l Total Bilirubin 0.8 (0.2-1.0) mg/dl AST 18 (13-39) U/L ALT 11 (7-52) U/L Alkaline Phosphatase 63 (34-104) U/L Total Protein 7.2 (6.0-8.3) gm/dl Albumin 4.3 (3.4-5.0) gm/dl Globulin 2.9 (2.5-4.0) gm/dl Albumin/Globulin Ratio 1.5 (0.9-2) Lipase 9 L (11-82) U/L Urine Color Dark Yellow Urine Appearance Cloudy A (Clear) Urine pH 5.0 (4.5-7.5) Ur Specific Donovan 1.021 (1.000-1.030) Urine Protein 1+ H (Negative) Urine Glucose (UA) Negative (Negative) Urine Ketones 2+ H (Negative) Urine Blood Trace H (Negative) Urine Nitrite Negative (Negative) Urine Bilirubin Negative (Negative) Urine Urobilinogen Negative (Negative) Ur Leukocyte Esterase Negative (Negative) Urine WBC (Auto) 1-5 (0-5) /hpf Urine RBC (Auto) 0-4 (0-4) /hpf U Hyaline Cast (Auto) 5-10 H (0-5) /lpf U Epithel Cells (Auto) >30 H (0-5) /lpf Urine Bacteria (Auto) Negative (Negative) 09/28/23 09/29/23 Range/Units 06:27 05:27 WBC 11.81 H 10.95 H (4.8-10.8) K/ul RBC 4.36 3.90 L (4.20-5.40) M/uL Hgb 13.6 11.9 L (12.0-16.0) g/dl POC Hgb (12.0-16.0) g/dl Hct 38.9 35.7 L (37.0-47.0) % POC Hct (37-47) % MCV 89.2 91.5 (80.0-100.0) fL MCH 31.2 30.5 (25.0-34.0) pg MCHC 35.0 33.3 (32.0-36.0) g/dL RDW Std Deviation 43.0 44.3 (36.4-46.3) fL RDW Coeff of Oren 13.1 13.2 (11.5-14.5) % Plt Count 308 289 (130-400) K/uL MPV 8.9 L 8.9 L (9.4-12.4) fL Immature Gran % (Auto) 0.3 0.5 % Neut % (Auto) 89.2 66.7 % Lymph % (Auto) 7.7 20.0 % [place] % (Auto) 2.4 10.0 % Eos % (Auto) 0.1 2.3 % Baso % (Auto) 0.3 0.5 % Neut # (Auto) 10.54 H 7.30 H (1.40-6.50) K/uL Lymph # (Auto) 0.91 L 2.19 (1.20-3.40) K/uL [place] # (Auto) 0.28 1.10 H (0.11-0.59) K/uL Eos # (Auto) 0.01 0.25 (0.00-0.50) K/uL Baso # (Auto) 0.03 0.05 (0.00-0.20) K/uL Immature Gran # (Auto) 0.04 0.06 (0.01-0.20) K/uL POC Sodium (135-144) mmol/L Sodium 134 L (136-145) mmol/L POC Potassium (3.3-5.0) mmol/L Potassium 4.1 (3.5-5.1) mmol/L POC Chloride (101-112) mmol/L Chloride 104 (98-107) mmol/L Carbon Dioxide 24 (21-32) mmol/L POC Total CO2 (24-31) mmol/L Anion Gap 6 (3-11) POC Anion Gap (16-25) mmol/L POC BUN (7-18) mg/dl BUN 27 H (6-23) mg/dl Creatinine 1.23 H D (0.6-1.2) mg/dl POC Creatinine (0.6-1.3) mg/dl Est Cr Clr Drug Dosing 39.2 ml/min Est GFR ( Amer) 55.6 ml/min Est GFR (Non-Af Amer) 48.0 ml/min BUN/Creatinine Ratio 22.0 H (10-20) Glucose 124 H (70-99(Fasting)) mg/dl POC Glucose (other) (70-99) mg/dl Lactate (0.4-2.0) mmol/L Calcium 8.3 L (8.6-10.3) mg/dl POC Ioniz Calcium Josr (1.12-1.32) mmol/l Total Bilirubin 0.6 (0.2-1.0) mg/dl AST 15 (13-39) U/L ALT 9 (7-52) U/L Alkaline Phosphatase 50 (34-104) U/L Total Protein 5.9 L (6.0-8.3) gm/dl Albumin 3.6 (3.4-5.0) gm/dl Globulin 2.3 L (2.5-4.0) gm/dl Albumin/Globulin Ratio 1.6 (0.9-2) Lipase (11-82) U/L Urine Color Urine Appearance (Clear) Urine pH (4.5-7.5) Ur Specific Donovan (1.000-1.030) Urine Protein (Negative) Urine Glucose (UA) (Negative) Urine Ketones (Negative) Urine Blood (Negative) Urine Nitrite (Negative) Urine Bilirubin (Negative) Urine Urobilinogen (Negative) Ur Leukocyte Esterase (Negative) Urine WBC (Auto) (0-5) /hpf Urine RBC (Auto) (0-4) /hpf U Hyaline Cast (Auto) (0-5) /lpf U Epithel Cells (Auto) (0-5) /lpf Urine Bacteria (Auto) (Negative)
--- NOTE | 2023-09-29 13:53 | Discharge Summary ---
Date of Service September 29, 2023 Admission HPI Per Admitting Provider Patient is a 58 years old female who presented to ED with a 3-day history right upper quadrant pain with a bulging, nausea and vomiting. Had a CT scan diagnosis small bowel obstruction secondary to right inguinal hernia. Right inguinal hernia was not reducible. Clinical diagnosis incarcerated right inguinal hernia. It took patient to the OR. He did open repair right inguinal hernia. Patient tolerated procedure well. Patient was transferred to regular floor. Patient was doing fine, no significant incision pain. Tolerated diet, no nausea, no vomiting, and passed flatus. Discharge date was 09/29/2023 . Admission Exam (Per Admitting) Constitutional WD/WN, vitals as above Eyes PERRL, conjunctivae normal, anicteric sclerae Neck trachea midline, no thyromegaly Respiratory normal respiratory effort, lungs clear to auscultation Cardiovascular RRR, no murmur, no edema Musculoskeletal no cyanosis or clubbing, extremities motor strength 5/5 Neurologic patellar DTR's 2+ bilat, sensation intact Psychiatric A+Ox3, euthymic affect Discharge Data Consultations 09/28/23 02:09 ED Decision to Admit Stat Procedures Performed Operation Date: 09/28/23 03:30 Actual Procedures p Right Inguinal Hernia Repair(Right) - Pavan Eagle MD Hospital Course (1) Incarcerated right inguinal hernia: Assessment: Patient is 58 years old female who presented to ED with a 3-day history right inguinal pain with a bulging nausea and vomiting. The bulging is not reducible. Patient had a CT scan diagnosis small bowel obstruction secondary to right inguinal hernia. I reviewed the CT. WBC 14,000. CR 1.5 Plan: Based on the patient history physical exam labs and the CT scan finding. I recommend to do open repair right inguinal hernia possible mesh possible ex ploratory laparotomy possible bowel resection and stoma. I did talk to patient about the benefit the risk and alternate of the procedure I indicated the risks may include but not limited such as bleeding infection hernia recurrence chronic pain complication related to mesh and the anastomotic leak. Patient and the patient's son understand. They are agreed to proceed the surgery. Patient signed informed consent. I answered all questions. pre-op IV antibiotic. 09/29/2023 11: 14 AM F/U S/P repair incarcerated right inguinal hernia, POD 1 pt is doing fine, Patient wants to go home today Gave patient postop care instruction, patient understood, I answered all questions. F/U 2 weeks. (2) SBO (small bowel obstruction): see above
== END 2023-09-29 12:16 | disposition home health service (06) | DRG 352 ==
LOC: ED 23:33 → OR 09-28 02:50 → 3E 09-28 04:50